=== PATIENT | male | born 1960 | race Two or more races ===

== ENCOUNTER → 2018-08-16 | Outpatient (CLI) | payer BC ==
--- NOTE | 2018-08-16 14:38 | CT ---
EXAMINATION TYPE: CT soft tissue neck w con DATE OF EXAM: 08/16/2018 COMPARISON: None HISTORY: Lt neck mass, history of squamous cell carcinoma removal. CT DLP: 344.7 mGycm CONTRAST: Patient injected with 100 mL of Isovue 300. TECHNIQUE: Axial images at 3 mm thick sections. Reconstructed images in the coronal plane and sagitt al plane are reviewed. FINDINGS: Limited CT sections are obtained the lung apices. The lung apices appear clear. There is a three-vessel arch. CT neck: The torus tubarius and fossa of Rosenmuller are normal. Reproducer spaces are normal. Para nasal sinuses and mastoid air cells are clear. Parotid glands appear normal and symmetrical. Submandibular glands, are normal. Parapharyngeal spac es are normal. There is a 1.7 cm lymph node at the level of the swelling of the left neck compatible with the palpab le abnormality marked by BB. This is inferior to the parotid gland and posterior lateral to the saliv audi submandibular gland The hypopharynx appears within normal limits. Vocal cord level appear symmetrical. Thyroid as visualized is normal. Osseous structures are normal. IMPRESSIONS: 1. Enlarged lymph node at the palpable abnormality within the left neck.
== END | disposition home or self-care (01) ==
LOC: RADCTMAIN 08:58
PROVIDERS: ATTEND Otolaryngology
DX: R59.0 Localized enlarged lymph nodes (principal)
CPT/HCPCS: 70491; Q9967

== ENCOUNTER → 2018-10-13 | Outpatient (CLI) | payer BC ==
--- NOTE | 2018-10-13 14:04 | US ---
EXAMINATION TYPE: US kidneys/renal and bladder DATE OF EXAM: 10/13/2018 COMPARISON: NONE CLINICAL HISTORY: R94.4 Abnormal Kidney Function. EXAM MEASUREMENTS: Right Kidney: 10.2 x 4.6 x 5.5 cm Left Kidney: 9.9 x 4.6 x 4.9 cm Right Kidney: No hydronephrosis or masses seen, lower pole obscured by bowel Left Kidney: No hydronephrosis, lower pole cyst measures 2.7 x 2.6 x 2.7 cm Bladder: wnl Bilateral Jets seen: Yes There is no evidence for hydronephrosis at this point in time. No nephrolithiasis is seen. The urina ry bladder is anechoic. Bilateral ureteral jets are seen. IMPRESSION: 1. No hydronephrosis or nephrolithiasis. 2. Left lower pole simple appearing cyst measuring 2.7 cm. 3. Obscuration of the right lower pole the kidney by overlying bowel gas.
== END ==
LOC: RADUSWWP 13:30
PROVIDERS: ATTEND Internal Medicine
DX: N28.1 Cyst of kidney, acquired (principal)
CPT/HCPCS: 76770

== ENCOUNTER → 2019-04-17 | Outpatient (CLI) | payer BC ==
--- NOTE | 2019-04-17 11:08 | CT ---
EXAMINATION TYPE: CT neck chest without con DATE OF EXAM: 04/17/2019 COMPARISON: None HISTORY: C44.42 Squamous cell carcinoma of skin scalp/neck Unenhanced CT of the chest was performed with lung and mediastinal window settings submitted. The la ck of contrast limits evaluation of the vascular, mediastinal and parenchymal structures including th e upper abdomen. LUNGS: The lungs are clear and free of infiltrate. No atelectasis. No pulmonary nodule or mass is de tected. Right basilar pleural effusion with pleural thickening noted. No CT evidence of interstitial lung disease. MEDIASTINUM/MAYTE: Thoracic aorta is of normal caliber with limited evaluation given lack of contrast . The heart is not enlarged. No evidence for mediastinal mass. No lymph nodes greater than 1cm. UPPER ABDOMEN: No significant abnormality is seen. OTHER: No significant other abnormality. IMPRESSION: 1. No evidence for metastatic disease to the chest. Chronic appearing right basilar pleural thickeni ng and effusion. EXAMINATION TYPE: CT neck chest without con DATE OF EXAM: 04/17/2019 COMPARISON: August 16, 2018 HISTORY: C44.42 Squamous cell carcinoma of skin scalp/neck Unenhanced CT of the neck was performed from the skull base through the lung apices. The lack of cont rast limits evaluation. Previously noted subcutaneous nodule left neck has been removed with multiple surgical clips noted. D istinct residual nodule or mass is identified. There is been removal of the submandibular gland on th e left as well as the parotid gland with small residual islands of carotid tissues suspected. AIRWAY: There is soft tissue fullness in the region of the left piriform sinus. Underlying mass is no t excluded. Direct visualization is recommended. Remaining portions of the airway are felt to be with in normal limits. SALIVARY GLANDS: Right-sided mandibular and parotid glands are within normal limits. THYROID GLAND: No nodules or masses seen. LYMPH NODES: No adenopathy seen greater than 1cm. LUNG APICES: No nodule or mass is seen. OTHER: Vascular structures are patent. No significant degenerative change of the cervical spine. N o abscess seen. IMPRESSION: 1.Previously noted subcutaneous nodule left neck has been removed with multiple surgical clips noted. Distinct residual nodule or mass is identified. 2.There is soft tissue fullness in the region of the left piriform sinus. Underlying mass is not excl uded. Direct visualization is recommended.
== END | disposition home or self-care (01) ==
LOC: RADCTMAIN 08:20
PROVIDERS: ATTEND Radiology Radiation Oncology
DX: C44.42 Squamous cell carcinoma of skin of scalp and neck (principal); C77.0 Secondary and unspecified malignant neoplasm of lymph nodes of head, face and neck; Z96.89 Presence of other specified functional implants; Z92.3 Personal history of irradiation; Z87.891 Personal history of nicotine dependence
CPT/HCPCS: 36415; 70490; 71250; 82565; 84520

== ENCOUNTER → 2019-07-22 | Outpatient (CLI) | payer BC ==
--- NOTE | 2019-07-25 07:35 | PE ---
EXAMINATION TYPE: PET CT fusion skull to thigh DATE OF EXAM: 07/22/2019 COMPARISON: CT neck and chest April 17, [address] HISTORY: History of head and neck cancer diagnosed August 2018 with surgery August 30, 2018 and rad iation treatment completed October. TECHNIQUE: Following the intravenous administration of 11.57 mCi of F-18 FDG, whole body images are performed from the skull base to the midthigh. Images are reviewed on the computer in the coronal, a xial, and sagittal planes. Reconstructed rotating images are created on independent workstation and reviewed on the computer. A noncontrast CT is performed in conjunction with the PET scan. SCAN: Subsequent Scan FINDINGS: SKULL BASE AND NECK: Extensive surgical change to the left neck numerous surgical clips from radical neck dissection surgery are redemonstrated. There is mild adjacent skin thickening presumed posttrea tment/radiation change. No suspicious hypermetabolic uptake is identified at area of prior adenopathy or remainder of the neck. Area of soft tissue fullness left piriform sinus with lack of air near axi al image 56 does not show suspicious hypermetabolic uptake to suggest active neoplasm. CHEST, MEDIASTINUM, AND HILAR REGION: No areas of suspicious hypermetabolic uptake. ABDOMEN AND PELVIS: No areas of suspicious hypermetabolic uptake. OSSEOUS STRUCTURES: No areas of suspicious hypermetabolic uptake. OTHER CT: Cardiomegaly with coronary artery calcification is seen. There is small right pleural effus ion or fluid collection redemonstrated. Prominent splenule in the posterior splenic hilum redemonstrated. Mild calcified plaque of the aorta extends into branch vessels. Enlarged prostate gland consistent with BPH. Adjacent pelvic phleboliths . Some facet arthropathy lower lumbar spine. IMPRESSION: Postsurgical and treatment changes left neck without abnormal hypermetabolic uptake to johnson ggest local or metastatic neoplastic recurrence.
== END | disposition home or self-care (01) ==
LOC: RADPETMAIN 07:30
PROVIDERS: ATTEND Radiology Radiation Oncology
DX: C44.42 Squamous cell carcinoma of skin of scalp and neck (principal); C77.0 Secondary and unspecified malignant neoplasm of lymph nodes of head, face and neck; Z92.3 Personal history of irradiation; Z87.891 Personal history of nicotine dependence; Z98.890 Other specified postprocedural states
CPT/HCPCS: 78815; A9552

== ENCOUNTER → 2019-10-09 | Outpatient (CLI) | payer BC ==
--- NOTE | 2019-10-09 17:43 | US ---
EXAMINATION TYPE: US venous doppler duplex LE LT DATE OF EXAM: 10/09/2019 5:27 PM COMPARISON: NONE CLINICAL HISTORY: M79.662 PAIN LT LOWER LIMB,R22.42 SWELLING LT LOWER LIMB. Edema left leg. SIDE PERFORMED: Left TECHNIQUE: The lower extremity deep venous system is examined utilizing real time linear array sonog rob with graded compression, doppler sonography and color-flow sonography. VESSELS IMAGED: External Iliac Vein (EIV) Common Femoral Vein Deep Femoral Vein Greater Saphenous Vein * Femoral Vein Popliteal Vein Small Saphenous Vein * Proximal Calf Veins (* superficial vessels) Left Leg: Negative for DVT IMPRESSION: No evidence of deep vein thrombosis in the left leg.
== END | disposition home or self-care (01) ==
LOC: RADUSWWP 16:42
PROVIDERS: ATTEND Internal Medicine
DX: M79.662 Pain in left lower leg (principal); R22.42 Localized swelling, mass and lump, left lower limb

== ENCOUNTER → 2020-02-27 | Outpatient (CLI) | payer BC ==
--- NOTE | 2020-02-28 09:23 | CT ---
EXAMINATION TYPE: CT brain wo/w con DATE OF EXAM: 02/27/2020 COMPARISON: 02/27/2020 HISTORY: f/u skin ca to head and neck CT DLP: 2180.8 mGycm Automated exposure control for dose reduction was used. CONTRAST: CT scan of the head is performed without and with IV Contrast, patient injected with 100 mL of Isovue 300. FINDINGS: Mild to moderate generalized degenerative change. Low-attenuation in the white matter is noted. No mi dline shift or mass effect. No acute hemorrhage. Postsurgical change involving the soft tissues of th e neck. Calvarium intact. Hyperdensity near the atrium of the right lateral ventricle and temporal ho rn likely related to calcification choroid plexus. IMPRESSION: 1. Degenerative and nonspecific white matter changes. Hyperdensity on noncontrast images likely repre sents calcification the choroid plexus could be confirmed with MRI.
--- NOTE | 2020-02-28 09:35 | CT ---
EXAMINATION TYPE: CT soft tissue neck wo/w con DATE OF EXAM: 02/27/2020 7:38 PM COMPARISON: PET CT scan 07/22/2019, 08/16/2018 HISTORY: f/u skin ca to head and neck CT DLP: 891.7 mGycm Automated exposure control for dose reduction was used. CONTRAST: CT scan of the neck is performed following without and with IV Contrast, patient injected with 100 mL of Isovue 300. Axial images are obtained, coronal and sagittal reformatted images are reviewed. FINDINGS: SKULL BASE AND NECK: Extensive surgical change to the left neck numerous surgical clips from radical neck dissection surgery are redemonstrated. There is mild adjacent skin thickening presumed posttreat ment/radiation change. No suspicious mass is identified. Area of soft tissue fullness left piriform s inus previously noted stable. Soft tissue density at the level the carotid bifurcation is stable from the PET scan which demonstrated no abnormal hyperbolic uptake and therefore likely postsurgical or b enign. AIRWAY: There is soft tissue fullness in the region of the left piriform sinus. Underlying mass is no t excluded. Direct visualization is recommended. Remaining portions of the airway are felt to be with in normal limits. SALIVARY GLANDS: Right-sided mandibular and parotid glands are within normal limits. Postsurgical ling nges on the left noted. THYROID GLAND: No nodules or masses seen. LYMPH NODES: No adenopathy seen greater than 1cm. LUNG APICES: No nodule or mass is seen. Mild emphysematous changes. OTHER: Vascular structures are patent. No significant degenerative change of the cervical spine. IMPRESSION: 1. Stable postsurgical changes with no evidence of recurrent mass. 2. Stable asymmetric left piriform sinus soft tissue fullness unchanged from prior exam.
== END | disposition home or self-care (01) ==
LOC: RADCTMAIN 18:11
PROVIDERS: ATTEND Radiology Radiation Oncology
DX: R90.82 White matter disease, unspecified (principal); Z98.890 Other specified postprocedural states; C44.42 Squamous cell carcinoma of skin of scalp and neck; C77.0 Secondary and unspecified malignant neoplasm of lymph nodes of head, face and neck; Z92.3 Personal history of irradiation; Z87.891 Personal history of nicotine dependence
CPT/HCPCS: 70492; 70470; Q9967

== ENCOUNTER 2020-06-18 17:34 | Inpatient (IN) | payer BC ==
[2020-06-18 20:44] LABS: Anisocytosis Slight; Basophils % (A) 1 %; Eosinophils # (A) 0.2 k/uL (0-0.7); Eosinophils % (A) 4 %; HCT 20.1 % (39.0-53.0); Hypochromasia Marked; Lymphocytes # (A) 0.8 k/uL (1.0-4.8); Lymphocytes % (A) 17 %; MCH 23.1 pg (25.0-35.0); MCHC 29.4 g/dL (31.0-37.0); MCV 78.5 fL (80.0-100.0); Mean Platelet Volume 7.5; Microcytosis Slight; Monocytes # (A) 0.4 k/uL (0-1.0); Monocytes % (A) 9 %; Neutrophils # (A) 3.3 k/uL (1.3-7.7); Neutrophils % (A) 66 %; Platelet Count 320 k/uL (150-450); Poikilocytosis Slight; RBC 2.56 m/uL (4.30-5.90); RDW 16.2 % (11.5-15.5)
[2020-06-18 20:45] LABS: HGB 5.9 gm/dL (13.0-17.5); Partial Thromboplastin Time 22.9 sec (22.0-30.0); Prothrombin Time 10.1 sec (9.0-12.0)
[2020-06-18 21:01] LABS: Calcium 8.8 mg/dL (8.4-10.2); Potassium 4.3 mmol/L (3.5-5.1); Total Bilirubin 0.3 mg/dL (0.2-1.3); Total Protein 7.2 g/dL (6.3-8.2)
[2020-06-18] MEDS ORDERED: NALOXONE 0.4 MG/ML 1 ML VIAL IV PRN (21:29)
[2020-06-18] MEDS ORDERED: PANTOPRAZOLE 40 MG/10 ML VIAL IVP STA (21:29)
--- NOTE | 2020-06-18 21:31 | ED ---
Recheck HPI - General Chief Complaint: Recheck/Abnormal Lab/Rx Stated Complaint: Abnormal labs Time Seen by Provider: 06/18/20 20:43 Source: patient Mode of arrival: ambulatory Limitations: no limitations - History of Present Illness Initial Comments: 60-year-old male with history of frequent nosebleeds presented emergency department for chief complaint of low hemoglobin. Patient states that he is experiencing dyspnea ON exertion, cold intolerance palpitations with movement and had noted increase in bloody noses. He was found to have low hemoglobin on outpatient labs and sent to the ER for further evaluation. Patient denies any dark stools he denies any bloody stools or history of GI bleed. Patient denies any vomiting or hematemesis. Patient states he has noticed some burning of the rectum when he eats spicy food otherwise no GI symptoms denies any abdominal pain. Patient denies any presyncope or syncopal episodes. Denies anticoagulati on use. Patient appears well and nontoxic on arrival he distress using good spirits however is found to have some mild tachycardia. Blood pressure stable - Related Data Home Medications Medication Instructions Recorded Confirmed Ergocalciferol [Vitamin D2] 50,000 unit PO Q14D 06/18/20 06/18/20 Furosemide [Lasix] 20 mg PO DAILY 06/18/20 06/18/20 Omeprazole Magnesium [PriLOSEC OTC] 20 mg PO BID 06/18/20 06/18/20 Potassium Chloride ER [K-Dur 10] 10 meq PO DAILY 06/18/20 06/18/20 amLODIPine [Norvasc] 5 mg PO DAILY 06/18/20 06/18/20 Allergies Allergy/AdvReac Type Severity Reaction Status Date / Time No Known Allergies Allergy Verified 06/18/20 18:06 Review of Systems ROS Statement: Those systems with pertinent positive or pertinent negative responses have been documented in the HPI. ROS Other: All systems not noted in ROS Statement are negative. Past Medical History Past Medical History: Cancer, GERD/Reflux, Hypertension History of Any Multi-Drug Resistant Organisms: None Reported Past Surgical History: No Surgical Hx Reported Past Psychological History: No Psychological Hx Reported Smoking Status: Former smoker Past Alcohol Use History: Daily Past Drug Use History: Unable to Obtain General Exam - General Exam Comments Initial Comments: General: The patient is awake and alert, in no distress, some pallor noted Eye: +3 mm pupils are equal, round and reactive to light, extra-ocular movements are intact. No nystagmus. There is normal conjunctiva bilaterally. No signs of icterus. Ears, nose, mouth and throat: There are moist mucous membranes and no oral lesions. Neck: The neck is supple, there is no tenderness or JVD. Cardiovascular: There is a increased rate and regular rhythm. No murmur, rub or gallop is appreciated. Respiratory: Lungs are clear to auscultation, respirations are non-labored, breath sounds are equal. No wheezes, stridor, rales, or rhonchi. Gastrointestinal: Soft, non-distended, non-tender abdomen without masses or organomegaly noted. There is no rebound or guarding present Brown stool on occult test. Musculoskeletal: Normal ROM, no tenderness. Strength 5/5. Sensation intact. radial pulses equal bilaterally 2+. Neurological: A&O x 3. CN II-XII intact grossly, There are no obvious motor or sensory deficits. Coordination appears grossly intact. Speech is normal. Skin: Skin is warm and dry and no rashes or lesions are noted. Psychiatric: Cooperative, appropriate mood & affect, normal judgment. Limitations: no limitations Course Vital Signs 06/18/20 06/18/20 06/18/20 18:02 20:55 21:40 Temperature 98.9 F Pulse Rate 108 H 100 Respiratory 24 18 18 Rate Blood Pressure 178/68 O2 Sat by Pulse 98 Oximetry 06/18/20 06/18/20 06/18/20 21:43 22:16 22:26 Temperature 98.4 F 98.2 F Pulse Rate 93 84 91 Respiratory 20 18 18 Rate Blood Pressure 155/80 167/83 153/84 O2 Sat by Pulse 100 100 99 Oximetry Medical Decision Making - Medical Decision Making initial hgb 5.7, 5.8 currentl brown stool on occult, however found to be postiive. hx epistaxis. none currently. Patient will be transfused as he is symptomatic with repeat CBC. Protonix given. GI consulted. Yessenia NEGRETE accepted patient for [facility]. Patient is agreeable to admission. Dr Springer agreeable to care plan. - Lab Data Result diagrams: 06/18/20 20:29 06/18/20 20:29 Lab Results 06/18/20 06/18/20 06/18/20 Range/Units 20:29 20:29 20:29 WBC 5.0 (3.8-10.6) k/uL RBC 2.56 L (4.30-5.90) m/uL Hgb 5.9 L* (13.0-17.5) gm/dL Hct 20.1 L (39.0-53.0) % MCV 78.5 L (80.0-100.0) fL MCH 23.1 L (25.0-35.0) pg MCHC 29.4 L (31.0-37.0) g/dL RDW 16.2 H (11.5-15.5) % Plt Count 320 (150-450) k/uL MPV 7.5 Neutrophils % 66 % Lymphocytes % 17 % Monocytes % 9 % Eosinophils % 4 % Basophils % 1 % Neutrophils # 3.3 (1.3-7.7) k/uL Lymphocytes # 0.8 L (1.0-4.8) k/uL Monocytes # 0.4 (0-1.0) k/uL Eosinophils # 0.2 (0-0.7) k/uL Basophils # 0.0 (0-0.2) k/uL Hypochromasia Marked Poikilocytosis Slight Anisocytosis Slight Microcytosis Slight PT 10.1 (9.0-12.0) sec INR 1.0 (<1.2) APTT 22.9 (22.0-30.0) sec Sodium 140 (137-145) mmol/L Potassium 4.3 (3.5-5.1) mmol/L Chloride 109 H (98-107) mmol/L Carbon Dioxide 21 L (22-30) mmol/L Anion Gap 10 mmol/L BUN 41 H (9-20) mg/dL Creatinine 2.60 H (0.66-1.25) mg/dL Est GFR (CKD-EPI)AfAm 30 (>60 ml/min/1.73 sqM) Est GFR (CKD-EPI)NonAf 26 (>60 ml/min/1.73 sqM) Glucose 103 H (74-99) mg/dL Calcium 8.8 (8.4-10.2) mg/dL Total Bilirubin 0.3 (0.2-1.3) mg/dL AST 29 (17-59) U/L ALT 16 (4-49) U/L Alkaline Phosphatase 114 (38-126) U/L Troponin I (0.000-0.034) ng/mL Total Protein 7.2 (6.3-8.2) g/dL Albumin 4.0 (3.5-5.0) g/dL Stool Occult Blood (Negative) Blood Type Blood Type Confirm Blood Type Recheck Bld Type Recheck Status Antibody Screen Crossmatch Spec Expiration Date 06/18/20 06/18/20 06/18/20 Range/Units 20:29 20:55 21:04 WBC (3.8-10.6) k/uL RBC (4.30-5.90) m/uL Hgb (13.0-17.5) gm/dL Hct (39.0-53.0) % MCV (80.0-100.0) fL MCH (25.0-35.0) pg MCHC (31.0-37.0) g/dL RDW (11.5-15.5) % Plt Count (150-450) k/uL MPV Neutrophils % % Lymphocytes % % Monocytes % % Eosinophils % % Basophils % % Neutrophils # (1.3-7.7) k/uL Lymphocytes # (1.0-4.8) k/uL Monocytes # (0-1.0) k/uL Eosinophils # (0-0.7) k/uL Basophils # (0-0.2) k/uL Hypochromasia Poikilocytosis Anisocytosis Microcytosis PT (9.0-12.0) sec INR (<1.2) APTT (22.0-30.0) sec Sodium (137-145) mmol/L Potassium (3.5-5.1) mmol/L Chloride (98-107) mmol/L Carbon Dioxide (22-30) mmol/L Anion Gap mmol/L BUN (9-20) mg/dL Creatinine (0.66-1.25) mg/dL Est GFR (CKD-EPI)AfAm (>60 ml/min/1.73 sqM) Est GFR (CKD-EPI)NonAf (>60 ml/min/1.73 sqM) Glucose (74-99) mg/dL Calcium (8.4-10.2) mg/dL Total Bilirubin (0.2-1.3) mg/dL AST (17-59) U/L ALT (4-49) U/L Alkaline Phosphatase (38-126) U/L Troponin I 0.013 (0.000-0.034) ng/mL Total Protein (6.3-8.2) g/dL Albumin (3.5-5.0) g/dL Stool Occult Blood (Negative) Blood Type AB Negative Blood Type Confirm AB Negative Blood Type Recheck No Previous Record Bld Type Recheck Status CABO Indicated Antibody Screen NEGATIVE Crossmatch See Detail Spec Expiration Date 06/21/2020 - 235406/18/20 Range/Units 21:21 WBC (3.8-10.6) k/uL RBC (4.30-5.90) m/uL Hgb (13.0-17.5) gm/dL Hct (39.0-53.0) % MCV (80.0-100.0) fL MCH (25.0-35.0) pg MCHC (31.0-37.0) g/dL RDW (11.5-15.5) % Plt Count (150-450) k/uL MPV Neutrophils % % Lymphocytes % % Monocytes % % Eosinophils % % Basophils % % Neutrophils # (1.3-7.7) k/uL Lymphocytes # (1.0-4.8) k/uL Monocytes # (0-1.0) k/uL Eosinophils # (0-0.7) k/uL Basophils # (0-0.2) k/uL Hypochromasia Poikilocytosis Anisocytosis Microcytosis PT (9.0-12.0) sec INR (<1.2) APTT (22.0-30.0) sec Sodium (137-145) mmol/L Potassium (3.5-5.1) mmol/L Chloride (98-107) mmol/L Carbon Dioxide (22-30) mmol/L Anion Gap mmol/L BUN (9-20) mg/dL Creatinine (0.66-1.25) mg/dL Est GFR (CKD-EPI)AfAm (>60 ml/min/1.73 sqM) Est GFR (CKD-EPI)NonAf (>60 ml/min/1.73 sqM) Glucose (74-99) mg/dL Calcium (8.4-10.2) mg/dL Total Bilirubin (0.2-1.3) mg/dL AST (17-59) U/L ALT (4-49) U/L Alkaline Phosphatase (38-126) U/L Troponin I (0.000-0.034) ng/mL Total Protein (6.3-8.2) g/dL Albumin (3.5-5.0) g/dL Stool Occult Blood Positive (Negative) Blood Type Blood Type Confirm Blood Type Recheck Bld Type Recheck Status Antibody Screen Crossmatch Spec Expiration Date Disposition Clinical Impression: Anemia, Cold intolerance, Tachycardia, Hx of epistaxis Disposition: ADMITTED IP TO THIS [facility] Condition: Stable Is patient prescribed a controlled substance at d/c from ED?: No Time of Disposition: 21:31 Decision to Admit Reason: Admit from EC Decision Date: 06/18/20 Decision Time: 21:31
--- NOTE | 2020-06-18 21:37 | XR ---
EXAMINATION TYPE: XR chest 2V DATE OF EXAM: 06/18/2020 COMPARISON: NONE HISTORY: Short of breath TECHNIQUE: FINDINGS: There is some blunting of the right costophrenic angle. Heart is top normal in size. There is no pulmonary consolidation. There are no hilar masses. Mediastinum is normal. There is no gross he art failure. IMPRESSION: There is mild right pleural effusion. Pleural fluid also present on the old PET CT scan o f 07/22/2019. No obvious heart failure.
[2020-06-18] MEDS: SODIUM CHLORIDE 0.9% 1,000 ML IV SCH (22:19)
[2020-06-19] MEDS: SODIUM CHLORIDE 0.9% 1,000 ML IV SCH (06:34)
[2020-06-19 08:24] LABS: Anisocytosis Slight; Basophils % (A) 1 %; Eosinophils # (A) 0.2 k/uL (0-0.7); Eosinophils % (A) 6 %; HCT 20.8 % (39.0-53.0); Hypochromasia Marked; Lymphocytes # (A) 0.5 k/uL (1.0-4.8); Lymphocytes % (A) 13 %; MCH 24.9 pg (25.0-35.0); MCHC 30.8 g/dL (31.0-37.0); MCV 80.8 fL (80.0-100.0); Mean Platelet Volume 8.7; Monocytes # (A) 0.3 k/uL (0-1.0); Monocytes % (A) 9 %; Neutrophils # (A) 2.6 k/uL (1.3-7.7); Neutrophils % (A) 68 %; Platelet Count 267 k/uL (150-450); Poikilocytosis Moderate; RBC 2.58 m/uL (4.30-5.90); RDW 16.5 % (11.5-15.5); WBC 3.8 k/uL (3.8-10.6)
[2020-06-19 08:37] LABS: HGB 6.4 gm/dL (13.0-17.5)
[2020-06-19] MEDS ORDERED: FUROSEMIDE 20 MG TAB PO SCH (09:00)
[2020-06-19] MEDS ORDERED: POTASSIUM CHLORIDE ER 10 MEQ TAB.ER.PRT PO SCH (09:00)
[2020-06-19] MEDS ORDERED: PANTOPRAZOLE 40 MG TABLET PO SCH (09:00)
[2020-06-19] MEDS ORDERED: amLODIPine 5 MG TAB PO SCH (09:00)
[2020-06-19 15:04] VITALS: RESP 18
--- NOTE | 2020-06-19 15:06 | P.HPIM ---
History of Present Illness Extremities all present male with the history and family history of nosebleeds came in with compensative nosebleeds which resolved today patient started having nosebleeds yesterday patient last nosebleed was yesterday. Patient had 1 episode of dark stools patient didn't have any dark stools of multiple sclerosis since yesterday. Patient denied any fever chills. Patient denied any hematemesis or hematochezia. Patient is found to have hemoglobin of around 5.9 and received 2 units of blood transfusion and will transfuse him with 1 more unit of PRBC. Patient does have chronic kidney disease followed. It nephrology patient Baseline creatinine is around 2 and his creatinine is 2.6 here patient is also on Lasix because of his chronic kidney disease. She appears to have a stage 3-4 chronic kidney disease. Review of Systems REVIEW OF SYSTEMS: CONSTITUTIONAL: No fever, no malaise, no fatigue. HEENT: No recent visual problems or hearing problems. Denied any sore throat. CARDIOVASCULAR: No chest pain, orthopnea, PND, no palpitations, no syncope. PULMONARY: No shortness of breath, no cough, no hemoptysis. GASTROINTESTINAL: No diarrhea, no nausea, no vomiting, no abdominal pain. NEUROLOGICAL: No headaches, no weakness, no numbness. HEMATOLOGICAL: Denies any bleeding or petechiae. GENITOURINARY: Denies any burning micturition, frequency, or urgency. MUSCULOSKELETAL/RHEUMATOLOGICAL: Denies any joint pain, swelling, or any muscle pain. ENDOCRINE: Denies any polyuria or polydipsia. The rest of the 14-point review of systems is negative. Past Medical History Past Medical History: Cancer, GERD/Reflux, Hypertension Additional Past Medical History / Comment(s): Skin CA History of Any Multi-Drug Resistant Organisms: None Reported Past Surgical History: No Surgical Hx Reported Past Anesthesia/Blood Transfusion Reactions: No Reported Reaction Past Psychological History: No Psychological Hx Reported Smoking Status: Former smoker Past Alcohol Use History: Daily Past Drug Use History: Unable to Obtain Medications and Allergies Home Medications Medication Instructions Recorded Confirmed Type Ergocalciferol [Vitamin D2] 50,000 unit PO Q14D 06/18/20 06/18/20 History Furosemide [Lasix] 20 mg PO DAILY 06/18/20 06/18/20 History Omeprazole Magnesium [PriLOSEC OTC] 20 mg PO BID 06/18/20 06/18/20 History Potassium Chloride ER [K-Dur 10] 10 meq PO DAILY 06/18/20 06/18/20 History amLODIPine [Norvasc] 5 mg PO DAILY 06/18/20 06/18/20 History Allergies Allergy/AdvReac Type Severity Reaction Status Date / Time No Known Allergies Allergy Verified 06/18/20 18:06 Physical Exam Vitals: Vital Signs Temp Pulse Pulse Resp BP BP Pulse Ox 06/19/20 13:25 98 F 78 16 152/86 99 06/19/20 12:00 97.6 F 76 18 152/82 100 06/19/20 11:43 97.8 F 86 18 157/92 06/19/20 11:16 98.7 F 89 18 143/83 99 06/19/20 11:06 97.3 F L 83 18 145/69 100 06/19/20 08:30 81 18 150/84 100 06/19/20 04:00 97.7 F 80 18 157/88 99 06/19/20 02:00 80 16 149/72 100 06/19/20 01:00 82 16 156/81 97 06/19/20 00:11 97.7 F 71 16 163/97 100 06/19/20 00:00 88 16 156/92 98 06/18/20 22:56 98.3 F 86 18 154/83 99 06/18/20 22:26 98.2 F 91 18 153/84 99 06/18/20 22:16 98.4 F 84 18 167/83 100 06/18/20 21:43 93 20 155/80 100 06/18/20 21:40 100 18 06/18/20 20:55 18 06/18/20 18:02 98.9 F 108 H 24 178/68 98 Intake and Output 06/19/20 06/19/20 06/19/20 06:59 14:59 22:59 Intake Total 610 310 Balance 610 310 Intake: Intake, IV Titration 300 Amount Sodium Chloride 0.9% 1, 300 000 ml @ 100 mls/hr IV . Q10H [facility] Rx#:[id number] Blood Product 310 310 Rc As-1 Unit 310 [id number] Rc As-1 Unit 310 [id number] Other: Voiding Method Toilet # Voids 1 Weight 97.069 kg PHYSICAL EXAMINATION: GENERAL: The patient is alert and oriented x3, not in any acute distress. Well developed, well nourished. HEENT: Pupils are round and equally reacting to light. EOMI. No scleral icterus. Does have conjunctival pallor. Normocephalic, atraumatic. No pharyngeal erythema. No thyromegaly. CARDIOVASCULAR: S1 and S2 present. No murmurs, rubs, or gallops. PULMONARY: Chest is clear to auscultation, no wheezing or crackles. ABDOMEN: Soft, nontender, nondistended, normoactive bowel sounds. No palpable organomegaly. MUSCULOSKELETAL: No joint swelling or deformity. EXTREMITIES: No cyanosis, clubbing, or pedal edema. NEUROLOGICAL: Gross neurological examination did not reveal any focal deficits. SKIN: No rashes. Results CBC & Chem 7: 06/19/20 08:06 06/18/20 20:29 Labs: Abnormal Lab Results - Last 24 Hours (Table) 06/18/20 06/18/20 06/18/20 Range/Units 20:29 20:29 20:55 RBC 2.56 L (4.30-5.90) m/uL Hgb 5.9 L* (13.0-17.5) gm/dL Hct 20.1 L (39.0-53.0) % MCV 78.5 L (80.0-100.0) fL MCH 23.1 L (25.0-35.0) pg MCHC 29.4 L (31.0-37.0) g/dL RDW 16.2 H (11.5-15.5) % Lymphocytes # 0.8 L (1.0-4.8) k/uL Chloride 109 H (98-107) mmol/L Carbon Dioxide 21 L (22-30) mmol/L BUN 41 H (9-20) mg/dL Creatinine 2.60 H (0.66-1.25) mg/dL Glucose 103 H (74-99) mg/dL Crossmatch See Detail 06/19/20 Range/Units 08:06 RBC 2.58 L (4.30-5.90) m/uL Hgb 6.4 L* (13.0-17.5) gm/dL Hct 20.8 L (39.0-53.0) % MCV (80.0-100.0) fL MCH 24.9 L (25.0-35.0) pg MCHC 30.8 L (31.0-37.0) g/dL RDW 16.5 H (11.5-15.5) % Lymphocytes # 0.5 L (1.0-4.8) k/uL Chloride (98-107) mmol/L Carbon Dioxide (22-30) mmol/L BUN (9-20) mg/dL Creatinine (0.66-1.25) mg/dL Glucose (74-99) mg/dL Crossmatch Thrombosis Risk Factor Assmnt - Choose All That Apply Any of the Below Risk Factors Present?: No Other Risk Factors: Yes Each Risk Factor Represents 2 Points: Age 61-74 years Other congenital or acquired thrombophilia - If yes, enter type in comment: No Thrombosis Risk Factor Assessment Total Risk Factor Score: 2 Thrombosis Risk Factor Assessment Level: Low Risk Assessment and Plan Plan: -Acute on chronic blood loss anemia secondary to frequent epistaxis. Patient's epistaxis resolved at this time patient is not on any blood thinners or antiplatelet medications patient will receive 1 more unit of blood transfusion completing 3 units of PRBC transfusion further workup for anemia and iron deficiency need to be done as an outpatient. Patient follows up with nephrology where iron studies will be done. After the transfusion patient probably can be discharged as there is no clinical evidence of GI bleed and he is epistaxis resolved patient will follow up with ENT as an outpatient. Gastroenterology was consulted from ER who already evaluated the patient after the clearance patient will be discharged. -Chronic kidney disease of stage 3-4 probably secondary to hypertensive nephrosclerosis -Mild acute renal failure probably prerenal azotemia from blood loss anemia -Hypertension -Gastroesophageal reflux disease -Possibility of an deficiency anemia from of frequent nosebleeds
--- NOTE | 2020-06-19 15:07 | P.DS ---
Providers Date of admission: 06/18/20 21:33 Attending physician: Terrence Marquez Consults: 06/18/20 21:29 Consult Physician Routine Consulting Provider: Yevgeniy Wayne Consult Reason/Comments: Low HgB, consult per [facility] Do you want consulting provider notified?: Yes 06/19/20 11:52 Consult Physician Routine Consulting Provider: Ezra Handley Consult Reason/Comments: epistaxis, anemia Do you want consulting provider notified?: Yes Primary care physician: Higinio Killian [place] [facility] Course: As mentioned in HPI Patient Condition at Discharge: Stable Plan - Discharge Summary Discharge Rx Participant: No New Discharge Prescriptions: No Action amLODIPine [Norvasc] 5 mg PO DAILY Potassium Chloride ER [K-Dur 10] 10 meq PO DAILY Furosemide [Lasix] 20 mg PO DAILY Ergocalciferol [Vitamin D2] 50,000 unit PO Q14D Omeprazole Magnesium [PriLOSEC OTC] 20 mg PO BID Discharge Medication List Ergocalciferol [Vitamin D2] 50,000 unit PO Q14D 06/18/20 [History] Furosemide [Lasix] 20 mg PO DAILY 06/18/20 [History] Omeprazole Magnesium [PriLOSEC OTC] 20 mg PO BID 06/18/20 [History] Potassium Chloride ER [K-Dur 10] 10 meq PO DAILY 06/18/20 [History] amLODIPine [Norvasc] 5 mg PO DAILY 06/18/20 [History] Follow up Appointment(s)/Referral(s): Nicki Gavin MD [STAFF PHYSICIAN] - 1 Week Constantin Sylvester MD [Primary Care Provider] - 3 Days Ezra Handley DO [Doctor of Osteopathic Medicine] - 1 Week Yevgeniy Wayne MD [STAFF PHYSICIAN] - 1 Week Discharge Disposition: HOME SELF-CARE
[2020-06-19 17:34] VITALS: BP 152/82; TEMP 98.3
[2020-06-19 17:41] VITALS: PULSE 80
--- NOTE | 2020-06-20 12:53 | P.CONS ---
History of Present Illness - Reason for Consult Consult date: 06/19/20 Anemia Requesting physician: Kristen Irving - Chief Complaint Anemia - History of Present Illness 60-year-old male with multiple medical comorbidities including osteoarthritis, history of skin CA, GERD and hypertension who presented to the hospital due to anemia. The patient has a history of frequent epistaxis and has been seen by the ENT service in the past. He reports that nosebleeds will occur one to 2 times per day. Nosebleeds can last up to 10 minutes. He denies any change in frequency of bowel habits or signs or symptoms of GI bleeding. The patient was found to be anemic in outpatient setting and sent to the hospital for further evaluation where he was found to have a hemoglobin of 6.4. Stool testing was positive for occult blood, WBC 3.8, platelet count 267,000 with total bilirubin 0.3, alkaline phosphatase 114, AST 29 and ALT 16. The patient does take ibuprofen nightly as well as Pepcid therapy. He has not had endoscopy with either EGD or colonoscopy in the past. Review of Systems REVIEW OF SYSTEMS: CONSTITUTIONAL: Denies any fevers, chills, weight change or fatigue. CARDIOVASCULAR: Denies any chest pain, palpitations high or low blood pressures RESPIRATORY: Denies any shortness of breath, hemoptysis or cough. GENITOURINARY: No dysuria or hematuria. MUSCULOSKELETAL: No weakness reported. SKIN: Denies any new rashes or lesions, jaundice or pallor. PSYCHIATRIC: Denies any depression or anxiety. NEUROLOGY: Denies headache, denies any new focal deficits. EARS/NOSE/THROAT: No recent hearing change, congestion, nasal discharge or sore throat, but he does report frequent epistaxis. EYES: No pain in eyes, discharge or change in vision. GASTROINTESTINAL: As per HPI. Past Medical History Past Medical History: Cancer, GERD/Reflux, Hypertension Additional Past Medical History / Comment(s): Skin CA History of Any Multi-Drug Resistant Organisms: None Reported Past Surgical History: No Surgical Hx Reported Past Anesthesia/Blood Transfusion Reactions: No Reported Reaction Past Psychological History: No Psychological Hx Reported Smoking Status: Former smoker Past Alcohol Use History: Daily Past Drug Use History: Unable to Obtain Additional History: Family history: Reviewed with the patient and no ncontributory to current medical presentation Medications and Allergies Home Medications Medication Instructions Recorded Confirmed Type Ergocalciferol [Vitamin D2] 50,000 unit PO Q14D 06/18/20 06/18/20 History Furosemide [Lasix] 20 mg PO DAILY 06/18/20 06/18/20 History Omeprazole Magnesium [PriLOSEC OTC] 20 mg PO BID 06/18/20 06/18/20 History Potassium Chloride ER [K-Dur 10] 10 meq PO DAILY 06/18/20 06/18/20 History amLODIPine [Norvasc] 5 mg PO DAILY 06/18/20 06/18/20 History Allergies Allergy/AdvReac Type Severity Reaction Status Date / Time No Known Allergies Allergy Verified 06/18/20 18:06 Physical Exam Vitals: Vital Signs Temp Pulse Pulse Resp BP BP Pulse Ox 06/19/20 13:25 98 F 78 16 152/86 99 06/19/20 12:00 97.6 F 76 18 152/82 100 06/19/20 11:43 97.8 F 86 18 157/92 06/19/20 11:16 98.7 F 89 18 143/83 99 06/19/20 11:06 97.3 F L 83 18 145/69 100 06/19/20 08:30 81 18 150/84 100 06/19/20 04:00 97.7 F 80 18 157/88 99 06/19/20 02:00 80 16 149/72 100 06/19/20 01:00 82 16 156/81 97 06/19/20 00:11 97.7 F 71 16 163/97 100 06/19/20 00:00 88 16 156/92 98 06/18/20 22:56 98.3 F 86 18 154/83 99 06/18/20 22:26 98.2 F 91 18 153/84 99 06/18/20 22:16 98.4 F 84 18 167/83 100 06/18/20 21:43 93 20 155/80 100 06/18/20 21:40 100 18 06/18/20 20:55 18 06/18/20 18:02 98.9 F 108 H 24 178/68 98 Intake and Output 06/18/20 06/19/20 06/19/20 22:59 06:59 14:59 Intake Total 0 610 310 Balance 0 610 310 Intake: Intake, IV Titration 300 Amount Sodium Chloride 0.9% 1, 300 000 ml @ 100 mls/hr IV . Q10H [facility] Rx#:[id number] Blood Product 0 310 310 Rc As-1 Unit 310 [id number] Rc As-1 Unit 0 310 [id number] Other: Voiding Method Toilet # Voids 1 Weight 97.069 kg 97.069 kg On physical examination, patient appears comfortable in no apparent distress. HEAD: Normocephalic, atraumatic. EYES: No scleral icterus. No conjunctival injection. MOUTH: No lesions, tongue midline. NECK: Trachea midline, no gross abnormalities. CHEST: Clear to auscultation with no wheezing or rhonchi appreciated. HEART: Regular rate and rhythm. ABDOMEN: Soft, obese. Bowel sounds are positive. No organomegaly. No guarding or rigidity. EXTREMITIES: No pedal edema. SKIN: No rashes, no jaundice. NEUROLOGIC: Alert and oriented x3. No focal deficits. Results CBC & Chem 7: 06/19/20 08:06 06/18/20 20:29 Labs: Abnormal Lab Results - Last 24 Hours (Table) 06/18/20 06/18/20 06/18/20 Range/Units 20:29 20:29 20:55 RBC 2.56 L (4.30-5.90) m/uL Hgb 5.9 L* (13.0-17.5) gm/dL Hct 20.1 L (39.0-53.0) % MCV 78.5 L (80.0-100.0) fL MCH 23.1 L (25.0-35.0) pg MCHC 29.4 L (31.0-37.0) g/dL RDW 16.2 H (11.5-15.5) % Lymphocytes # 0.8 L (1.0-4.8) k/uL Chloride 109 H (98-107) mmol/L Carbon Dioxide 21 L (22-30) mmol/L BUN 41 H (9-20) mg/dL Creatinine 2.60 H (0.66-1.25) mg/dL Glucose 103 H (74-99) mg/dL Crossmatch See Detail 06/19/20 Range/Units 08:06 RBC 2.58 L (4.30-5.90) m/uL Hgb 6.4 L* (13.0-17.5) gm/dL Hct 20.8 L (39.0-53.0) % MCV (80.0-100.0) fL MCH 24.9 L (25.0-35.0) pg MCHC 30.8 L (31.0-37.0) g/dL RDW 16.5 H (11.5-15.5) % Lymphocytes # 0.5 L (1.0-4.8) k/uL Chloride (98-107) mmol/L Carbon Dioxide (22-30) mmol/L BUN (9-20) mg/dL Creatinine (0.66-1.25) mg/dL Glucose (74-99) mg/dL Crossmatch Assessment and Plan (1) Anemia Narrative/Plan: 60-year-old male presenting to the hospital for complaints of anemia. Found to have a microcytic hypochromic anemia in the outpatient setting. The patient does report frequent epistaxis in the outpatient setting usually daily 1-2 times per day. Denies any signs or symptoms of GI bleeding. No prior history of endoscopy. Stool testing was positive for occult blood. Suspicion is for anemia related to his epistaxis, however cannot rule out a component of GI blood loss, although the patient denies any change in bowel habits or signs or symptoms of GI bleeding. Status: Acute Code(s): D64.9 - ANEMIA, UNSPECIFIED SNOMED Code(s): 605594800 (2) Hx of epistaxis Status: Acute Code(s): Z87.898 - PERSONAL HISTORY OF OTHER SPECIFIED CONDITIONS SNOMED Code(s): 806785103 Plan: Supportive care Okay for diet Continue monitor hemoglobin and hematocrit and transfuse as needed Extensive discussion with the patient and his who is bedside, recommendation is for patient to follow up after discharge for EGD and colonoscopy to rule out causes of GI blood loss Patient should also follow up with ENT given frequent recurrent epistaxis Thank you for allowing us to participate in the care of the patient
[2020-06-24] MEDS ORDERED: ERGOCALCIFEROL 50,000 UNIT CAP PO SCH (09:00)
== END 2020-06-19 16:29 | disposition home or self-care (01) | DRG 812 ==
LOC: EC 17:34 → 3SCARD 21:33
PROVIDERS: ADMIT Hospitalist; ATTEND Hospitalist
PROC: 30233N1 Transfusion of Nonautologous Red Blood Cells into Peripheral Vein, Percutaneous Approach (ICD-10-PCS; principal; 2020-06-19)
DX: D62 Acute posthemorrhagic anemia (principal); N18.4 Chronic kidney disease, stage 4 (severe); N17.9 Acute kidney failure, unspecified; R04.0 Epistaxis; K21.9 Gastro-esophageal reflux disease without esophagitis; I12.9 Hypertensive chronic kidney disease with stage 1 through stage 4 chronic kidney disease, or unspecified chronic kidney disease; D50.9 Iron deficiency anemia, unspecified; Z79.899 Other long term (current) drug therapy; Z87.891 Personal history of nicotine dependence
CPT/HCPCS: 36415; 36430; 71046; 80053; 82272; 84484; 85025; 85610; 85730; 86850; 86900; 86901; 86920; 93005; 96361; 96374; 99285

== ENCOUNTER → 2020-06-18 | Outpatient (CLI) | payer BC ==
[2020-06-18 15:41] LABS: Appearance,Urine Clear (Clear); Bilirubin,Urine Negative (Negative); Blood,Urine Small (Negative); Color,Urine Colorless; Glucose,Urine (UA) Negative (Negative); Ketones,Urine Negative (Negative); Leukocyte Esterase,Urine Negative (Negative); Nitrite,Urine Negative (Negative); Protein,Urine 2+ (Negative); RBC,Urine 1 /hpf (0-5); Specific Gravity,Urine 1.008 (1.001-1.035); Squamous Epithelial Cell,Urine <1 /hpf (0-4); Urobilinogen,Urine <2.0 mg/dL (<2.0); WBC,Urine <1 /hpf (0-5)
[2020-06-18 16:14] LABS: Anisocytosis Slight; Basophils % (A) 1 %; Eosinophils # (A) 0.2 k/uL (0-0.7); Eosinophils % (A) 4 %; Hypochromasia Marked; Lymphocytes # (A) 0.6 k/uL (1.0-4.8); Lymphocytes % (A) 16 %; MCH 23.2 pg (25.0-35.0); MCHC 29.1 g/dL (31.0-37.0); MCV 79.8 fL (80.0-100.0); Monocytes # (A) 0.4 k/uL (0-1.0); Monocytes % (A) 10 %; Neutrophils # (A) 2.7 k/uL (1.3-7.7); Neutrophils % (A) 68 %; Platelet Count 308 k/uL (150-450); Poikilocytosis Slight; RBC 2.45 m/uL (4.30-5.90); RDW 16.3 % (11.5-15.5)
[2020-06-18 16:21] LABS: HCT 19.5 % (39.0-53.0); HGB 5.7 gm/dL (13.0-17.5)
[2020-06-18 18:44] LABS: African American GFR (CKD) 29.5 (60.0-200.0); Albumin/Globulin Ratio 1.6 (1.60-3.17); Anion Gap 8.8 mmol/L (4.00-12.00); BUN/Creat Ratio 16.92 Ratio (12.00-20.00); Calcium 8.7 mg/dL (8.7-10.3); Carbon Dioxide 23.2 mmol/L (21.6-31.8); Globulin 2.5 g/dL (1.6-3.3); Non-African American GFR(CKD) 25.5 (60.0-200.0); Potassium 4.6 mmol/L (3.5-5.5); Total Bilirubin 0.2 mg/dL (0.2-1.2); Total Protein 6.5 g/dL (6.2-8.2)
[2020-06-18 22:24] LABS: INR 1.03 (0.90-1.11); Partial Thromboplastin Time 24.1 sec (23.5-31.0); Prothrombin Time 11.1 sec (9.9-11.9)
== END | disposition home or self-care (01) ==
LOC: LABWHC1 14:30
PROVIDERS: ATTEND Internal Medicine
DX: Z01.812 Encounter for preprocedural laboratory examination (principal)
CPT/HCPCS: 36415; 80053; 81001; 85025; 85610; 85730

== ENCOUNTER 2020-07-02 07:38 | Day surgery (SDC) | payer BC ==
[2020-06-27 17:52] VITALS: BMI 30.7
[~2020-07-02 07:38] MED LIST: LACTATED RINGERS 1,000 ML IV SCH; LIDOCAINE 1% (10MG/ML) FOR IV START INTRADERMA PRN
[2020-07-02 08:00] VITALS: TEMP 97.5
[2020-07-02] MEDS ORDERED: PROPOFOL 10 MG/ML 20 ML VIAL IV ONE (08:39)
[2020-07-02] MEDS ORDERED: LIDOCAINE 1% INJ 10MG/ML (20 ML MDV) ONE (08:39)
--- NOTE | 2020-07-02 09:28 | P.PCN ---
Date of Procedure: 07/02/20 Description of Procedure: Brief history: Patient is a 60-year-old male presenting for EGD and colonoscopy for evaluation of anemia and other fecal abnormalities. Patient was seen in the emergency department where he had reported frequent epistaxis which is improved. No prior EGD or colonoscopy. Patient had anemia and positive stool testing for occult blood. Procedure performed: Esophagogastroduodenoscopy With biopsy Colonoscopy with polypectomy Estimated blood loss: Minimal. Preoperative diagnosis: Anemia, other fecal abnormalities, no prior colonoscopy. Anesthesia: MAC Procedure: After informed consent was obtained from the patient was brought into the endoscopy unit and IV sedation was administered by anesthesia under continuous monitoring. Initially upper endoscopy was done. The Olympus GF 190 video endoscope was inserted into the mouth and esophagus intubated without any difficulty and was gradually advanced into the stomach and duodenum and carefully examined. The bulb and second part of the duodenum appeared normal, With biopsies taken. The scope was then withdrawn into the stomach adequately insufflated with air and upon careful examination the antrum and body, cardia and fundus appeared normal, Except for some mild scattered erythema in the antrum and body suggestive of mild gastritis with biopsies taken. The scope was then withdrawn into the esophagus. The GE junction was located at 42 cm to the incisors And biopsy. It appeared regular with no erythema erosions or ulcerations. Rest of the esophagus appeared normal. Patient tolerated the procedure well. At this time the patient continued to remain sedation. Initial digital rectal examination was normal. Olympus CF 190 video colonoscope was then inserted into the rectum and gradually advanced to the cecum without any difficulty. Careful examination was performed as the scope was gradually being withdrawn. The prep was excellent. The cecum, ascending colon, transverse colon, descending colon, sigmoid colon and rectum appeared normal. Diminutive polyps measuring 1-2 mm in size removed with cold forcep polypectomy from the ascending colon and hepatic flexure. 4 transverse colon polyps measuring 4 mm in size to 6 mm in size removed with hot snare polypectomy. 4 descending colon polyps measuring from millimeters in size to 5 mm in size removed with hot snare polypectomy. Sigmoid colon polyp measuring 5 mm in size removed with hot snare polypectomy. Pedunc ulated 14 mm rectal polyp removed with hot snare polypectomy. Retroflexion was performed in the rectum and no lesions were noted. Patient tolerated the procedure well. Impression: 1. Mild gastritis. Biopsies of the duodenum, antrum body and GE junction. 2. Pedunculated rectal polyp removed with hot snare polypectomy. 9 flat polyps removed with hot snare polypectomy 4 from the transverse colon, 4 from the descending colon and one from the sigmoid colon. 2 diminutive polyps removed with cold forcep polypectomy from the ascending colon and hepatic flexure. Recommendations: Findings of this examination were discussed with the patient as well as his . Okay to resume diet. Okay to resume medications. Await pathology from polypectomies. Recommend repeat colonoscopy in 1 year for high-risk colon polyps.
[2020-07-02 09:37] VITALS: RESP 16
[2020-07-02 09:52] VITALS: BP 144/79; PULSE 81
== END 2020-07-02 10:33 | disposition home or self-care (01) ==
LOC: ORWHC2ENDO 07:38
PROVIDERS: ATTEND Internal Medicine
DX: D12.2 Benign neoplasm of ascending colon (principal); D12.3 Benign neoplasm of transverse colon; D12.4 Benign neoplasm of descending colon; D12.5 Benign neoplasm of sigmoid colon; D12.8 Benign neoplasm of rectum; K29.50 Unspecified chronic gastritis without bleeding; K21.00 Gastro-esophageal reflux disease with esophagitis, without bleeding; D64.9 Anemia, unspecified; Z87.891 Personal history of nicotine dependence; Z98.890 Other specified postprocedural states
CPT/HCPCS: 88305; 45380; 45385; 43239; J2001; J2704

== ENCOUNTER → 2020-07-10 | Outpatient (CLI) | payer BC ==
[2020-07-10 16:52] LABS: Anisocytosis Slight; HCT 25.8 % (39.0-53.0); HGB 8.3 gm/dL (13.0-17.5); Hypochromasia Moderate; MCH 25.6 pg (25.0-35.0); MCHC 32.2 g/dL (31.0-37.0); MCV 79.6 fL (80.0-100.0); Mean Platelet Volume 8.5; Microcytosis Slight; Platelet Count 230 k/uL (150-450); RBC 3.25 m/uL (4.30-5.90); RDW 17.5 % (11.5-15.5); WBC 4.8 k/uL (3.8-10.6)
[2020-07-10 17:16] LABS: Appearance,Urine Clear (Clear); Bilirubin,Urine Negative (Negative); Blood,Urine Small (Negative); Color,Urine Light Yellow; Glucose,Urine (UA) Negative (Negative); Ketones,Urine Negative (Negative); Leukocyte Esterase,Urine Negative (Negative); Mucus,Urine Rare /hpf; Nitrite,Urine Negative (Negative); Protein,Urine 2+ (Negative); RBC,Urine 2 /hpf (0-5); Specific Gravity,Urine 1.009 (1.001-1.035); Urobilinogen,Urine <2.0 mg/dL (<2.0); WBC,Urine 1 /hpf (0-5)
[2020-07-10 17:23] LABS: Creatinine,Urine Random 49.6 mg/dL; Protein/Creatinine Ratio,Urine 3.629
[2020-07-11 01:40] LABS: % Iron Saturation 6.58 (15.00-50.00); African American GFR (CKD) 24.8 (60.0-200.0); Albumin 4.2 g/dL (3.80-4.90); Albumin/Globulin Ratio 1.68 (1.60-3.17); Anion Gap 11.3 mmol/L (4.00-12.00); BUN/Creat Ratio 17.67 Ratio (12.00-20.00); Calcium 8.7 mg/dL (8.7-10.3); Carbon Dioxide 20.7 mmol/L (21.6-31.8); Ferritin 12.6 ng/mL (22.0-322.0); Globulin 2.5 g/dL (1.6-3.3); Magnesium 2.2 mg/dL (1.5-2.4); Non-African American GFR(CKD) 21.4 (60.0-200.0); Phosphorus 5.5 mg/dL (2.4-5.1); Potassium 4.5 mmol/L (3.5-5.5); Total Bilirubin 0.2 mg/dL (0.2-1.2); Total Protein 6.7 g/dL (6.2-8.2); Uric Acid 10.2 mg/dL (3.7-8.7)
[2020-07-11 10:33] LABS: Hepatitis A Antibody IgM Non-Reactive (Non-Reactive); Hepatitis B Core IgM Non-Reactive (Non-Reactive); Hepatitis B Surface Antigen Non-Reactive (Non-Reactive); Hepatitis C IgG Antibody Non-Reactive (Non-Reactive)
[2020-07-11 10:58] LABS: DNA Double-Stranded NEGATIVE (NEGATIVE)
== END | disposition home or self-care (01) ==
LOC: LABWHC1 16:18
PROVIDERS: ATTEND Internal Medicine
DX: N18.30 Chronic kidney disease, stage 3 unspecified (principal); R79.9 Abnormal finding of blood chemistry, unspecified
CPT/HCPCS: 36415; 80053; 80074; 81001; 82306; 82570; 82728; 83516; 83540; 83550; 83735; 83883; 83970; 84100; 84156; 84550; 85027; 86038; 86160; 86162; 86225; 86255; 86334

== ENCOUNTER → 2022-02-16 | Outpatient (CLI) | payer BC ==
--- NOTE | 2022-02-16 11:42 | US ---
EXAMINATION TYPE: US kidneys/renal and bladder DATE OF EXAM: 02/16/2022 COMPARISON: US kidneys October 13, 2018. PET/CT July 22, 2019 CLINICAL HISTORY: N18.4 CKD. CKD. EXAM MEASUREMENTS: Right Kidney: 9.6 x 5.2 x 4.5 cm Left Kidney: 10.6 x 5.6 x 4.4 cm Right Kidney: Thin-walled cyst with septation seen lower pole: 2.0 x 1.5 x 1.2 cm. Anechoic area see n superiorly: 1.1 x 1.3 x 1.5 cm. Thin-walled cyst with septation seen superiorly: 1.8 x 1.9 x 1.2 cm . Left Kidney: Lobulated anechoic area seen medially at the inferior pole: 2.6 x 1.5 x 2.2 cm. Hypoechoic area seen at kidney border: 1.7 x 3.1 x 0.6 cm. Bladder: Appears adequately distended. Bilateral Jets seen: Yes Some increased cortical echogenicity bilaterally. IMPRESSION: Bosniak type I and type II lesions bilaterally. Evidence of chronic medical renal disease . No hydronephrosis seen bilaterally.
== END | disposition home or self-care (01) ==
LOC: RADUSWWP 10:38
PROVIDERS: ATTEND Internal Medicine Nephrology
DX: N18.4 Chronic kidney disease, stage 4 (severe) (principal)
CPT/HCPCS: 76770

== ENCOUNTER 2022-02-18 09:38 | Day surgery (SDC) | payer BC ==
[2022-02-16 09:41] VITALS: BMI 29.2
[~2022-02-18 09:38] MED LIST changes: -LIDOCAINE 1% (10MG/ML) FOR IV START INTRADERMA PRN
[2022-02-18] MEDS ORDERED: SODIUM CHLORIDE 0.9% 1,000 ML IV ONE ×2 (10:30)
[2022-02-18] MEDS ORDERED: PROPOFOL 10 MG/ML 20 ML VIAL IV ONE (11:06)
--- NOTE | 2022-02-18 11:40 | P.PCN ---
Date of Procedure: 02/18/22 Procedure(s) Performed: BRIEF HISTORY: Patient is a 61-year-old pleasant white male scheduled for an elective colonoscopy as a part of evaluation of Hemoccult-positive stool. Patient has history of osler lawson rendu disease and prior history of telangiectasia in the colon. He denies any rectal bleeding. He also has prior history of colon polyps. PROCEDURE PERFORMED: Colonoscopy with with argon plasma coagulation and biopsy. PREOPERATIVE DIAGNOSIS: History of colon polyps and Hemoccult-positive stool. IV sedation per Anesthesia. PROCEDURE: After informed consent was obtained, the patient, was brought into the endoscopy unit. IV sedation was administered by Anesthesia under continuous monitoring. Digital rectal examination was normal. Initially the Olympus CF-160 flexible video colonoscope was then inserted in the rectum, gradually advanced into the cecum without any difficulty. Careful examination was performed as the scope was gradually being withdrawn. Ileocecal valve and the appendiceal orifice were visualized and appeared normal. Prep was excellent. Mucosa of the cecum, had a 5 mm nonbleeding angiectasia with was cauterized using argon plasma coagulation. Mucosa of the ascending colon, transverse colon, appeared normal. In the transverse colon there was a 5 mm polyp removed by cold biopsy. In the sigmoid: There was a 3 minute a polyp removed by cold biopsy. Rest of the descending colon, sigmoid colon, and rectum appeared normal. Retroflexion was performed in the rectum and no lesions were seen. The patient tolerated the procedure well. IMPRESSION: 5 mm nonbleeding angiectasia in the cecum status post argon plasma coagulation 5 mm transverse colon polyp status post cold biopsy 3 mm sigmoid polyp status post cold biopsy RECOMMENDATIONS: Findings of this examination were discussed with the patient as well as his family. He was advised to follow with the biopsy results. If the biopsy reveals adenoma he can have a repeat colonoscopy in 5 years.
[2022-02-18 11:49] VITALS: RESP 16
[2022-02-18 12:26] VITALS: BP 135/74; PULSE 65
== END 2022-02-18 12:39 | disposition home or self-care (01) ==
LOC: ORWHC2ENDO 09:38
PROVIDERS: ATTEND Internal Medicine Gastroenterology
DX: D12.5 Benign neoplasm of sigmoid colon (principal); D12.3 Benign neoplasm of transverse colon; K31.819 Angiodysplasia of stomach and duodenum without bleeding; Z86.010 Personal history of colon polyps; K21.9 Gastro-esophageal reflux disease without esophagitis; D64.9 Anemia, unspecified; N28.9 Disorder of kidney and ureter, unspecified; I10 Essential (primary) hypertension; Z79.899 Other long term (current) drug therapy; Z87.891 Personal history of nicotine dependence; Z80.9 Family history of malignant neoplasm, unspecified
CPT/HCPCS: 88305; 45380; 45388; J2704

== ENCOUNTER 2022-08-13 09:21 | Observation (INO) | payer BC ==
--- NOTE | 2022-08-13 09:46 | ED ---
Recheck HPI - General Chief Complaint: Recheck/Abnormal Lab/Rx Stated Complaint: Abn Labs Time Seen by Provider: 08/13/22 09:42 Source: patient, RN notes reviewed Mode of arrival: ambulatory Limitations: no limitations - History of Present Illness Initial Comments: Patient is a 62-year-old male presenting to the emergency room from [facility] after his Procrit injection for his chronic anemia secondary to renal failure with and his CBC today revealed a hemoglobin of 7.0 which was down from July 30 at 9.2. He does report some shortness of breath with exertion recently but denies any other associated symptoms including any chest pain, weakness, fatigue, nausea, vomiting, headache, or dizziness. He denies any significant bleeding event recently with the exception of a brief episode of nose bleeding earlier this morning. He does report that he has tarry-like stools however he is on an iron supplement and this is not uncommon for him. He denies any abdominal pain. In addition to his chronic kidney disease he has a past med ical history significant for skin cancer, GERD, hypertension and a rare blood disorder. He did have a an event similar to this in June 2020. - Related Data Home Medications Medication Instructions Recorded Confirmed calcitrioL [Rocaltrol] 0.5 mcg PO SUTH 08/05/20 08/13/22 amLODIPine [Norvasc] 10 mg PO DAILY 02/14/21 08/13/22 Famotidine 40 mg PO DAILY 02/16/22 08/13/22 Febuxostat 40 mg PO DAILY 02/16/22 08/13/22 Ferrous Sulfate [Feosol] 325 mg PO BID 02/16/22 08/13/22 Sodium Bicarbonate Tab 650 mg PO DAILY 06/17/22 08/13/22 hydrALAZINE HCL 50 mg PO TID 06/17/22 08/13/22 Calcium Acetate [Phoslo] 1,334 mg PO BID@1200,1700 08/13/22 08/13/22 Ergocalciferol (Vitamin D2) 1,250 mcg PO SALES 08/13/22 08/13/22 [Drisdol (50,000 Iu)] Allergies Allergy/AdvReac Type Severity Reaction Status Date / Time No Known Allergies Allergy Verified 08/13/22 13:02 Review of Systems ROS Statement: Those systems with pertinent positive or pertinent negative responses have been documented in the HPI. ROS Other: All systems not noted in ROS Statement are negative. Past Medical History Past Medical History: Blood Disorder, Cancer, GERD/Reflux, Hypertension, Renal Disease Additional Past Medical History / Comment(s): Skin CA - SURGERY AND RADIATION. [id number] (Blood disorder). Kidney disease-about to start dialysis History of Any Multi-Drug Resistant Organisms: None Reported Past Surgical History: No Surgical Hx Reported Additional Past Surgical History / Comment(s): removal of skin cancer removed from left buddhist. fistula placed for dialysis Past Anesthesia/Blood Transfusion Reactions: No Reported Reaction Additional Past Anesthesia/Blood Transfusion Reaction / Comment(s): recent transfusions with no problems Past Psychological History: No Psychological Hx Reported Smoking Status: Former smoker Past Alcohol Use History: Daily Past Drug Use History: None Reported - Past Family History Father Family Medical History: Cancer General Exam - General Exam Comments Initial Comments: GENERAL: No acute distress, well developed, well nourished. HEENT: Normocephalic, atraumatic. Pupils equal, round, reactive to light. Moist mucous membranes. LUNGS: No respiratory distress. Clear to auscultation, no adventitious sounds, no use of accessory muscles. HEART: Regular rate and rhythm without murmur, rub, or gallop. ABDOMEN: Normal bowel sounds. Soft, non-tender, non-distended. Rounded. Digital rectal exam revealed good rectal tone without bloody stools. Dark Brown near black stools noted no melena or maroon color. No hemorrhoids. BACK: Normal inspection. EXTREMITIES: Bilateral lower extremity edema +1. No tenderness. Moves all extremities. NEUROLOGIC: Alert & oriented x 3. CN II-XII grossly intact. PSYCHIATRIC: Normal affect and behavior. DERMATOLOGIC: Skin intact, without rashes or lesions noted. Limitations: no limitations Course Vital Signs 08/13/22 08/13/22 08/13/22 09:25 11:32 14:20 Temperature 98 F 97.9 F Pulse Rate 97 76 83 Respiratory 18 18 18 Rate Blood Pressure 162/65 158/72 148/90 O2 Sat by Pulse 98 98 98 Oximetry Medical Decision Making - Medical Decision Making Was pt. sent in by a medical professional or institution? @ -Infusion center Did you speak to anyone other than the patient for history? @ -No Did you review nursing and triage notes? @ -Yes and agree except patient does note tarry stools. Were old charts reviewed? @ -Previous EKG and previous history and physical Differential Diagnosis? @ -MDM differential diagnosis anemia: Acute loss, GI bleed, iron deficiency, worsening of chronic secondary anemia,this is not meant to be an all-inclusive list. EKG interpreted by me (3pts min.)? @ -EKG interpreted by me demonstrates sinus rhythm with sinus arrhythmia, ventricular rate 76 bpm, CT interval 172 ms, QRS duration 99 ms, QT/QTC 391/421 ms, PRT axes 69, 5, 43 X-rays interpreted by me (1pt min.)? @ -None CT interpreted by me (1pt min.)? @ -None U/S interpreted by me (1pt. min.)? @ -None What testing was considered but not performed? (CT, X-rays, U/S, labs)? Why? @ -None What meds were considered but not given? Why? @ -None Did you discuss the management of the patient with other professionals? @ -Spoke with Dr. YURI Sheet regarding admission Did you reconcile home meds? @ -No Was smoking cessation discussed for >3mins.? @ -No, nonsmoker Was critical care preformed (if so, how long)? @ -None Were there social determinants of health that impacted care today? How? (Homelessness, low income, unemployed, alcoholism, drug addiction, transportation, low edu. Level, literacy, decrease access to med. care, custodial, rehab)? @ -No Was there de-escalation of care discussed even if they declined? (Discuss DNR or withdrawal of care, Hospice)? @ -No What co-morbidities impacted this encounter? (DM, HTN, Smoking, COPD, CAD, Cancer, CVA, Hep., AIDS, mental health diagnosis, sleep apnea, morbid obesity)? @ -Chronic renal disease Was patient admitted / discharged? @ -Patient sent to emergency room from [facility] for hemoglobin of 7.0. Patient with some symptomatology of shortness of breath with exertion denies any evidence of bleeding reports some tarry stools occasionally but on oral iron supplements. Digital rectal exam completed with stool for occult blood obtained no obvious signs of bleeding on digital rectal exam. Will repeat CBC check CMP, troponin, ferritin TIBC and type and cross for potential transfusion. No indication for diagnostic imaging. EKG completed and as indicated above. Repeat CBC reveals hemoglobin of 6.9. Symptomatic anemia with a hemoglobin less than 7 will require packed RBC transfusion. CMP consistent with end-stage renal disease baseline GFR 14 currently at 11 today without uremic symptoms. Troponin elevated at 0.040 likely secondary to renal impairment however given severe anemia will need trending of troponin. Stool for occult blood negative. Will plan for observation admission and transfusion of 1 unit of packed red blood cells along with turning of of troponin as indicated above. No indication for further diagnostic imaging or laboratory studies at this time. Iron studies pending will defer iron infusion at this time. Spoke with Dr. su from [facility] regarding patient presentation, findings and recommendation of observation admission for transfusion and monitoring. He is excepting of admission. Will place admission orders. He is requesting consult to both nephrology and hematology will place with consult as well. Will admit patient in stable condition for symptomatic anemia to observation. Undiagnosed new problem with uncertain prognosis? @ -None Drug Therapy requiring intensive monitoring for toxicity (Heparin, Nitro, Insulin, Cardizem)? @ -None Were any procedures done? @ -None Diagnosis/symptom? @ -Anemia Acute, or Chronic, or Acute on Chronic? @ -Acute on chronic Uncomplicated (without systemic symptoms) or Complicated (systemic symptoms)? @ -Complicated Side effects of treatment? @ -None Exacerbation, Progression, or Severe Exacerbation] @ -No Poses a threat to life or bodily function? @ -Yes Diagnosis/symptom? @ -End-stage renal disease Acute, or Chronic, or Acute on Chronic? @ -Chronic Uncomplicated (without systemic symptoms) or Complicated (systemic symptoms)? @ -Complicated Side effects of treatment? @ -None Exacerbation, Progression, or Severe Exacerbation] @ -Concern for progression Poses a threat to life or bodily function? @ -No Case discussed with Dr. Trammell. - Lab Data Result diagrams: 08/13/22 11:27 08/13/22 11:27 Lab Results 08/13/22 08/13/22 08/13/22 Range/Units 10:11 11:20 11:27 WBC 4.7 5.5 (3.8-10.6) k/uL RBC 2.11 L 2.16 L (4.30-5.90) m/uL Hgb 6.9 L* 6.9 L* (13.0-17.5) gm/dL Hct 20.6 L 20.9 L (39.0-53.0) % MCV 97.2 96.7 (80.0-100.0) fL MCH 32.7 32.0 (25.0-35.0) pg MCHC 33.7 33.1 (31.0-37.0) g/dL RDW 14.5 15.0 (11.5-15.5) % Plt Count 229 248 (150-450) k/uL MPV 9.0 9.2 Neutrophils % 76 73 % Lymphocytes % 11 12 % Monocytes % 5 7 % Eosinophils % 4 4 % Basophils % 0 1 % Neutrophils # 3.6 4.1 (1.3-7.7) k/uL Lymphocytes # 0.5 L 0.7 L (1.0-4.8) k/uL Monocytes # 0.2 0.4 (0-1.0) k/uL Eosinophils # 0.2 0.2 (0-0.7) k/uL Basophils # 0.0 0.1 (0-0.2) k/uL Hypochromasia Slight Slight PT (9.0-12.0) sec INR (<1.2) APTT (22.0-30.0) sec Sodium (137-145) mmol/L Potassium (3.5-5.1) mmol/L Chloride (98-107) mmol/L Carbon Dioxide (22-30) mmol/L Anion Gap mmol/L BUN (9-20) mg/dL Creatinine (0.66-1.25) mg/dL Est GFR (CKD-EPI)AfAm (>60 ml/min/1.73 sqM) Est GFR (CKD-EPI)NonAf (>60 ml/min/1.73 sqM) Glucose (74-99) mg/dL Calcium (8.4-10.2) mg/dL Total Bilirubin (0.2-1.3) mg/dL AST (17-59) U/L ALT (4-49) U/L Alkaline Phosphatase (38-126) U/L Troponin I (0.000-0.034) ng/mL Total Protein (6.3-8.2) g/dL Albumin (3.5-5.0) g/dL Stool Occult Blood (Negative) Blood Type AB Negative Blood Type Recheck AB Neg Bld Type Recheck Status No Antibody Screen NEGATIVE Crossmatch See Detail Spec Expiration Date 08/16/2022 - 231908/13/22 08/13/22 08/13/22 Range/Units 11:27 11:27 11:27 WBC (3.8-10.6) k/uL RBC (4.30-5.90) m/uL Hgb (13.0-17.5) gm/dL Hct (39.0-53.0) % MCV (80.0-100.0) fL MCH (25.0-35.0) pg MCHC (31.0-37.0) g/dL RDW (11.5-15.5) % Plt Count (150-450) k/uL MPV Neutrophils % % Lymphocytes % % Monocytes % % Eosinophils % % Basophils % % Neutrophils # (1.3-7.7) k/uL Lymphocytes # (1.0-4.8) k/uL Monocytes # (0-1.0) k/uL Eosinophils # (0-0.7) k/uL Basophils # (0-0.2) k/uL Hypochromasia PT 9.8 (9.0-12.0) sec INR 0.9 (<1.2) APTT 22.2 (22.0-30.0) sec Sodium 141 (137-145) mmol/L Potassium 4.7 (3.5-5.1) mmol/L Chloride 110 H (98-107) mmol/L Carbon Dioxide 21 L (22-30) mmol/L Anion Gap 10 mmol/L BUN 63 H (9-20) mg/dL Creatinine 5.02 H (0.66-1.25) mg/dL Est GFR (CKD-EPI)AfAm 13 (>60 ml/min/1.73 sqM) Est GFR (CKD-EPI)NonAf 11 (>60 ml/min/1.73 sqM) Glucose 114 H (74-99) mg/dL Calcium 9.0 (8.4-10.2) mg/dL Total Bilirubin 0.2 (0.2-1.3) mg/dL AST 30 (17-59) U/L ALT 24 (4-49) U/L Alkaline Phosphatase 101 (38-126) U/L Troponin I 0.040 H* (0.000-0.034) ng/mL Total Protein 6.4 (6.3-8.2) g/dL Albumin 3.8 (3.5-5.0) g/dL Stool Occult Blood (Negative) Blood Type Blood Type Recheck Bld Type Recheck Status Antibody Screen Crossmatch Spec Expiration Date 08/13/22 Range/Units 12:16 WBC (3.8-10.6) k/uL RBC (4.30-5.90) m/uL Hgb (13.0-17.5) gm/dL Hct (39.0-53.0) % MCV (80.0-100.0) fL MCH (25.0-35.0) pg MCHC (31.0-37.0) g/dL RDW (11.5-15.5) % Plt Count (150-450) k/uL MPV Neutrophils % % Lymphocytes % % Monocytes % % Eosinophils % % Basophils % % Neutrophils # (1.3-7.7) k/uL Lymphocytes # (1.0-4.8) k/uL Monocytes # (0-1.0) k/uL Eosinophils # (0-0.7) k/uL Basophils # (0-0.2) k/uL Hypochromasia PT (9.0-12.0) sec INR (<1.2) APTT (22.0-30.0) sec Sodium (137-145) mmol/L Potassium (3.5-5.1) mmol/L Chloride (98-107) mmol/L Carbon Dioxide (22-30) mmol/L Anion Gap mmol/L BUN (9-20) mg/dL Creatinine (0.66-1.25) mg/dL Est GFR (CKD-EPI)AfAm (>60 ml/min/1.73 sqM) Est GFR (CKD-EPI)NonAf (>60 ml/min/1.73 sqM) Glucose (74-99) mg/dL Calcium (8.4-10.2) mg/dL Total Bilirubin (0.2-1.3) mg/dL AST (17-59) U/L ALT (4-49) U/L Alkaline Phosphatase (38-126) U/L Troponin I (0.000-0.034) ng/mL Total Protein (6.3-8.2) g/dL Albumin (3.5-5.0) g/dL Stool Occult Blood Negative (Negative) Blood Type Blood Type Recheck Bld Type Recheck Status Antibody Screen Crossmatch Spec Expiration Date Disposition Clinical Impression: Symptomatic anemia, Elevated troponin Disposition: HOME SELF-CARE Condition: Stable Is patient prescribed a controlled substance at d/c from ED?: No Referrals: Constantin Sylvester MD [Primary Care Provider] - 1-2 days Time of Disposition: 13:40
[2022-08-13 10:29] LABS: Basophils % (A) 0 %; Eosinophils # (A) 0.2 k/uL (0-0.7); Eosinophils % (A) 4 %; HCT 20.6 % (39.0-53.0); Hypochromasia Slight; Lymphocytes # (A) 0.5 k/uL (1.0-4.8); Lymphocytes % (A) 11 %; MCH 32.7 pg (25.0-35.0); MCHC 33.7 g/dL (31.0-37.0); MCV 97.2 fL (80.0-100.0); Monocytes # (A) 0.2 k/uL (0-1.0); Monocytes % (A) 5 %; Neutrophils # (A) 3.6 k/uL (1.3-7.7); Neutrophils % (A) 76 %; Platelet Count 229 k/uL (150-450); RBC 2.11 m/uL (4.30-5.90); RDW 14.5 % (11.5-15.5); WBC 4.7 k/uL (3.8-10.6)
[2022-08-13 10:48] LABS: HGB 6.9 gm/dL (13.0-17.5)
[2022-08-13 11:55] LABS: Basophils # (A) 0.1 k/uL (0-0.2); Basophils % (A) 1 %; Eosinophils # (A) 0.2 k/uL (0-0.7); Eosinophils % (A) 4 %; HCT 20.9 % (39.0-53.0); Hypochromasia Slight; Lymphocytes # (A) 0.7 k/uL (1.0-4.8); Lymphocytes % (A) 12 %; MCHC 33.1 g/dL (31.0-37.0); MCV 96.7 fL (80.0-100.0); Mean Platelet Volume 9.2; Monocytes # (A) 0.4 k/uL (0-1.0); Monocytes % (A) 7 %; Neutrophils # (A) 4.1 k/uL (1.3-7.7); Neutrophils % (A) 73 %; Platelet Count 248 k/uL (150-450); RBC 2.16 m/uL (4.30-5.90); WBC 5.5 k/uL (3.8-10.6)
[2022-08-13 12:07] LABS: HGB 6.9 gm/dL (13.0-17.5)
[2022-08-13 12:15] LABS: Albumin 3.8 g/dL (3.5-5.0); Potassium 4.7 mmol/L (3.5-5.1); Total Bilirubin 0.2 mg/dL (0.2-1.3); Total Protein 6.4 g/dL (6.3-8.2)
[2022-08-13 12:56] LABS: INR 0.9 (<1.2); Partial Thromboplastin Time 22.2 sec (22.0-30.0); Prothrombin Time 9.8 sec (9.0-12.0)
[2022-08-13 17:32] LABS: Basophils # (A) 0.1 k/uL (0-0.2); Basophils % (A) 1 %; Eosinophils # (A) 0.3 k/uL (0-0.7); Eosinophils % (A) 5 %; HCT 24.4 % (39.0-53.0); HGB 8.1 gm/dL (13.0-17.5); Hypochromasia Moderate; Lymphocytes # (A) 0.7 k/uL (1.0-4.8); Lymphocytes % (A) 16 %; MCH 32.7 pg (25.0-35.0); MCHC 33.3 g/dL (31.0-37.0); MCV 98.2 fL (80.0-100.0); Macrocytosis Slight; Mean Platelet Volume 7.9; Monocytes # (A) 0.3 k/uL (0-1.0); Monocytes % (A) 6 %; Neutrophils # (A) 3.3 k/uL (1.3-7.7); Neutrophils % (A) 70 %; Platelet Count 236 k/uL (150-450); RBC 2.49 m/uL (4.30-5.90); RDW 15.1 % (11.5-15.5); WBC 4.7 k/uL (3.8-10.6)
[2022-08-13] MEDS: CALCIUM ACETATE 667 MG TAB PO SCH (18:13)
[2022-08-13] MEDS: hydrALAZINE HCL 50 MG TAB PO SCH (20:02)
[2022-08-13] MEDS: FERROUS SULFATE 325 MG TAB PO SCH (20:02)
[2022-08-13 20:19] LABS: % Iron Saturation 10.5 (15.00-50.00)
--- NOTE | 2022-08-13 23:50 | HP ---
HISTORY AND PHYSICAL CHIEF COMPLAINT: Symptomatic anemia and abnormal labs. HISTORY OF PRESENT ILLNESS: This 62-year-old gentleman with a past medical history of multiple medical problems including hypertension, chronic kidney disease, also had an AV graft placed on the left arm. The patient is followed by Nephrology. The patient had iron transfusion. Today, his hemoglobin is 6.9. The patient was directed to [facility]. The patient complains of tiredness and weakness. No chest pain. No palpitations. No fever. PAST MEDICAL HISTORY: Reviewed and include chronic kidney disease, hypertension. The rest of the history and rest of the chart is reviewed. HOME MEDICATIONS: Reviewed and include vitamin D2. Dose and rest of medication noted. ALLERGIES: None. FAMILY HISTORY: History of cancer in the family. SOCIAL HISTORY: Previous history of smoking and daily alcohol intake. REVIEW OF SYSTEMS: A 14-point review of systems negative except as mentioned earlier. PHYSICAL EXAMINATION: VITAL SIGNS: Pulse 83, blood pressure 149/81, respirations 18. HEENT: Conjunctivae pale. CHEST: Clear to auscultation. CARDIOVASCULAR: S1, S2. ABDOMEN: Soft. NERVOUS SYSTEM: Nonfocal. SKIN: No ulcers or rashes. JOINTS: No active deforming arthropathy. LABORATORY DATA: WBC 6.9. ASSESSMENT: 1. Symptomatic anemia for transfusion. 2. Chronic kidney disease. 3. History of gastroesophageal reflux disease. 4. Hypertension. 5. History of skin cancer. 6. Multiple medical issues. RECOMMENDATIONS: In this 62-year-old gentleman, who presented with multiple complex medical issues, I would recommend 1 unit transfusion and monitor hemodynamic status and fluid status closely. Resume the home medications. Nephrology consultation. Repeat labs in the morning. Prognosis is guarded. Further recommendations to follow. See orders for details. Set of troponins also has been requested. MMODL / IJN: [id number] /
[2022-08-14 02:34] VITALS: RESP 16
[2022-08-14] MEDS: FERROUS SULFATE 325 MG TAB PO SCH (07:31)
[2022-08-14] MEDS: hydrALAZINE HCL 50 MG TAB PO SCH (07:31)
[2022-08-14] MEDS ORDERED: FAMOTIDINE 20 MG TAB PO SCH ×2 (09:00)
[2022-08-14] MEDS ORDERED: amLODIPine 10 MG TAB PO SCH (09:00)
[2022-08-14] MEDS ORDERED: allopurinoL 100 MG TAB PO SCH (09:00)
[2022-08-14] MEDS ORDERED: SODIUM BICARBONATE TAB 650 MG TAB PO SCH (09:00)
[2022-08-14 09:14] LABS: Basophils # (A) 0.03 X 10*3/uL (0.00-0.10); Basophils % (A) 0.5 %; Eosinophils # (A) 0.35 X 10*3/uL (0.04-0.35); Eosinophils % (A) 5.7 %; HCT 25.2 % (39.6-50.0); HGB 7.6 g/dL (13.0-17.0); Immature Grans, Automated 0.6 %; Lymphocytes # (A) 0.76 X 10*3/uL (0.90-5.00); Lymphocytes % (A) 12.3 %; MCH 31.3 pg (27.0-32.0); MCHC 30.2 g/dL (32.0-37.0); MCV 103.7 fL (80.0-97.0); Mean Platelet Volume 10.1 fL (9.5-12.2); Monocytes # (A) 0.62 X 10*3/uL (0.20-1.00); Monocytes % (A) 10.1 %; NRBC Per 100 WBC 0 /100 WBCS (0.0-0.0); Neutrophils # (A) 4.36 X 10*3/uL (1.80-7.70); Neutrophils % (A) 70.8 %; Platelet Count 258 X 10*3/uL (140-440); RBC 2.43 X 10*6/uL (4.40-5.60); RDW 15.7 % (11.5-14.5); WBC 6.16 X 10*3/uL (4.50-10.00)
[2022-08-14 09:28] LABS: African American GFR (CKD) 12.9 (60.0-200.0); Anion Gap 12.1 mmol/L (10.00-18.00); BUN/Creat Ratio 11.16 Ratio (12.00-20.00); Blood Urea Nitrogen 56.9 mg/dL (9.0-27.0); Calcium 9.1 mg/dL (8.7-10.3); Carbon Dioxide 22.9 mmol/L (20.0-27.5); Non-African American GFR(CKD) 11.1 (60.0-200.0); Potassium 4.4 mmol/L (3.5-5.5)
--- NOTE | 2022-08-14 10:19 | P.NPCON ---
History of Present Illness - Reason for Consult chronic renal failure - History of Present Illness Patient is a 62-year-old male with history of hypertension, chronic kidney disease NKF stage 4-5 with previous creatinine at 4.3 mg/dL in July 2022. Patient is admitted to the hospital as he was noted to have a significantly low hemoglobin while he was scheduled to have and Aranesp. Hemoglobin was 6.9 g/dL. There has not been any episodes of acute bleeding. Patient has been receiving the Aranesp every 2 weeks. Previous hemoglobin 9.3 on 07/30/2022. Serum creatinine was 5.1 mg/dL with previous creatinine at 3.0 on 07/10/2020 Patient denies any nausea or vomiting. No complaints of dizziness chest pains or shortness of breath. He has a functioning AV fistula in his left arm. Patient has not started hemodialysis yet. Review of Systems As per HPI Past Medical History Past Medical History: Blood Disorder, Cancer, GERD/Reflux, Hypertension, Renal Disease Additional Past Medical History / Comment(s): Skin CA - SURGERY AND RADIATION. [id number] (Blood disorder). Kidney disease-about to start dialysis History of Any Multi-Drug Resistant Organisms: None Reported Past Surgical History: No Surgical Hx Reported Additional Past Surgical History / Comment(s): removal of skin cancer removed from left church. fistula placed for dialysis left upper arm Past Anesthesia/Blood Transfusion Reactions: No Reported Reaction Additional Past Anesthesia/Blood Transfusion Reaction / Comment(s): recent transfusions with no problems Past Psychological History: No Psychological Hx Reported Smoking Status: Former smoker Past Alcohol Use History: Daily Additional Past Alcohol Use History / Comment(s): quit smoking 2 yrs ago, smoked for 45 yrs. past hx of daily alcohol use-no longer drinks alcohol Past Drug Use History: None Reported - Past Family History Father Family Medical History: Cancer Medications and Allergies Home Medications Medication Instructions Recorded Confirmed Type calcitrioL [Rocaltrol] 0.5 mcg PO SUTH 08/05/20 08/13/22 History amLODIPine [Norvasc] 10 mg PO DAILY 02/14/21 08/13/22 History Famotidine 40 mg PO DAILY 02/16/22 08/13/22 History Febuxostat 40 mg PO DAILY 02/16/22 08/13/22 History Ferrous Sulfate [Feosol] 325 mg PO BID 02/16/22 08/13/22 History Sodium Bicarbonate Tab 650 mg PO DAILY 06/17/22 08/13/22 History hydrALAZINE HCL 50 mg PO TID 06/17/22 08/13/22 History Calcium Acetate [Phoslo] 1,334 mg PO BID@1200,1700 08/13/22 08/13/22 History Ergocalciferol (Vitamin D2) 1,250 mcg PO SALES 08/13/22 08/13/22 History [Drisdol (50,000 Iu)] Allergies Allergy/AdvReac Type Severity Reaction Status Date / Time No Known Allergies Allergy Verified 08/13/22 13:02 Physical Exam Vitals: Vital Signs Temp Pulse Pulse Resp BP BP Pulse Ox 08/14/22 07:17 98.3 F 86 16 179/74 97 08/14/22 02:33 98.0 F 93 16 141/64 96 08/13/22 19:04 98.3 F 94 17 138/71 98 08/13/22 18:15 98.1 F 82 21 150/68 99 08/13/22 16:59 98.0 F 79 18 148/89 08/13/22 14:50 98.0 F 80 18 140/88 97 08/13/22 14:30 98.0 F 83 18 149/81 100 08/13/22 14:20 97.9 F 83 18 148/90 98 08/13/22 11:32 76 18 158/72 98 Intake and Output 08/13/22 08/14/22 08/14/22 22:59 06:59 14:59 Intake Total 310 Balance 310 Intake: Blood Product 310 Rc As-1 Unit 310 [id number] Other: # Voids 4 Weight 95.254 kg Patient is awake, comfortable, no acute distress Examination of the heart S1 and S2 Examination of the lungs bilateral breath sounds are heard Abdomen is soft nontender Examination of the lower extremity shows no evidence of edema PROSTHETIC DENTIST exam grossly intact Results - Lab Results Most recent lab results Calcium 9.1 mg/dL (8.7-10.3) 08/14/22 05:36 08/14/22 05:36 08/14/22 05:36 Assessment and Plan Assessment: 1. Chronic kidney disease NKF stage V with functioning AV fistula left arm. Currently asymptomatic. No plans for starting renal replacement therapy during this admission. Last creatinine of 4.3 in July 2022 2. Anemia with no active bleeding maintained on Aranesp, status post packed RBCs transfusion 3. Hypertension 4. CK D mineral bone disorder Plan: Patient can be discharged from nephrology standpoint. He will follow-up as outpatient. Continue with Aranesp as outpatient. Repeat labs in about 1 week post discharge.
[2022-08-14] MEDS: CALCIUM ACETATE 667 MG TAB PO SCH (12:06)
[2022-08-14] MEDS ORDERED: SODIUM FERRIC GLUCONAT-SUCROSE 125 MG in SODIUM CHLORIDE 0.9% 100 ML IVPB ONE (13:30)
[2022-08-14 14:36] VITALS: BP 145/69; PULSE 89; TEMP 97.8
--- NOTE | 2022-08-14 15:01 | P.CONS ---
History of Present Illness - Reason for Consult Consult date: 08/14/22 Anemia Requesting physician: Chula Cazares - Chief Complaint Abnormal lab - History of Present Illness Mr. Brito is a pleasant 62-year-old male we have been asked to see for anemia. Anemia noted in the chart since 2019. PMH includes HTN, CKD and Aanm-Ksvaw-Qcdgu disease-his mother, 2 sisters and a niece all have the diseases well-his disease manifests as frequent epistaxis. He was started on LNANY for anemia chronic kidney disease, every other week schedule, and is status post 3 or 4 doses. He does report that dialysis is planned but, has not initiated yet as he is still doing okay. He reports upper and lower endoscopy about 3 months ago and capsule endoscopy about a year and a half ago-no abnormal findings. He denies any other bleeding. He reports receiving IV iron in the past, last dose was sometime last year. Denies any symptoms of anemia, other then mild shortness of breath when ambulating, no dizziness, headaches, chest pain. He is independent in his activities. Denies any other physical complaints other 10 point review of systems. Hemoglobin status post transfusion is 7.6-he was 6.9 on admit, BUN 56, creatinine 5.1. Occult negative Review of Systems 10 point review of systems is negative except as stated in HPI Past Medical History Past Medical History: Blood Disorder, Cancer, GERD/Reflux, Hypertension, Renal Disease Additional Past Medical History / Comment(s): Skin CA - SURGERY AND RADIATION. [id number] (Blood disorder). Kidney disease-about to start dialysis History of Any Multi-Drug Resistant Organisms: None Reported Past Surgical History: No Surgical Hx Reported Additional Past Surgical History / Comment(s): removal of skin cancer removed from left [employer]ec[employer]alism. fistula placed for dialysis left upper arm Past Anesthesia/Blood Transfusion Reactions: No Reported Reaction Additional Past Anesthesia/Blood Transfusion Reaction / Comm: recent transfusions with no problems Past Psychological History: No Psychological Hx Reported Smoking Status: Former smoker Past Alcohol Use History: Daily Additional Past Alcohol Use History / Comment(s): quit smoking 2 yrs ago, smoked for 45 yrs. past hx of daily alcohol use-no longer drinks alcohol Past Drug Use History: None Reported - Past Family History Father Family Medical History: Cancer Mother Family Medical History: Blood Disorder (Yznzy-Pjuoe-Xcdjt disease) Sister(s) Family Medical History: Blood Disorder (2 sisters with Mkgwx-Trmid-Cstsb disease) Medications and Allergies Home Medications Medication Instructions Recorded Confirmed Type calcitrioL [Rocaltrol] 0.5 mcg PO SUTH 08/05/20 08/13/22 History amLODIPine [Norvasc] 10 mg PO DAILY 02/14/21 08/13/22 History Famotidine 40 mg PO DAILY 02/16/22 08/13/22 History Febuxostat 40 mg PO DAILY 02/16/22 08/13/22 History Ferrous Sulfate [Iron (65 MG 325 mg PO BID 02/16/22 08/13/22 History Elemental)] Sodium Bicarbonate Tab 650 mg PO DAILY 06/17/22 08/13/22 History hydrALAZINE HCL 50 mg PO TID 06/17/22 08/13/22 History Calcium Acetate [PhosLo] 1,334 mg PO BID@1200,1700 08/13/22 08/13/22 History Ergocalciferol (Vitamin D2) 1,250 mcg PO SALES 08/13/22 08/13/22 History [Drisdol (50,000 Iu)] Allergies Allergy/AdvReac Type Severity Reaction Status Date / Time No Known Allergies Allergy Verified 08/13/22 13:02 Physical Exam Vitals: Vital Signs Temp Pulse Pulse Resp BP BP Pulse Ox 08/14/22 07:17 98.3 F 86 16 179/74 97 08/14/22 02:33 98.0 F 93 16 141/64 96 08/13/22 19:04 98.3 F 94 17 138/71 98 08/13/22 18:15 98.1 F 82 21 150/68 99 08/13/22 16:59 98.0 F 79 18 148/89 08/13/22 14:50 98.0 F 80 18 140/88 97 08/13/22 14:30 98.0 F 83 18 149/81 100 08/13/22 14:20 97.9 F 83 18 148/90 98 Intake and Output 08/13/22 08/14/22 08/14/22 22:59 06:59 14:59 Intake Total 310 Balance 310 Intake: Blood Product 310 Rc As-1 Unit 310 [id number] Other: # Voids 4 Weight 95.254 kg - Constitutional General appearance: average body habitus, cooperative, no acute distress - EENT Eyes: anicteric sclerae, EOMI ENT: hearing grossly normal, normal oropharynx - Neck Neck: no lymphadenopathy - Respiratory Respiratory: bilateral: CTA - Cardiovascular Rhythm: regular Heart sounds: normal: S1, S2 Abnormal Heart Sounds: no systolic murmur, no diastolic murmur, no rub, no S3 Gallop, no S4 Gallop, no click, no other leg Peripheral Edema: bilateral: None - Gastrointestinal General gastrointestinal: no absent bowel sounds, no decreased bowel sounds, no distended, no hepatomegaly, no hyperactive bowel sounds, normal bowel sounds, no organomegaly, no rigid, no scaphoid, soft, no splenomegaly, no tenderness, no umbilical hernia, no ventral hernia - Integumentary Integumentary: normal turgor, pale - Neurologic Neurologic: CNII-XII intact - Musculoskeletal Musculoskeletal: strength equal bilaterally - Psychiatric Psychiatric: A&O x's 3, appropriate affect, intact judgment & insight Results CBC & Chem 7: 08/14/22 05:36 08/14/22 05:36 Labs: Abnormal Lab Results - Last 24 Hours (Table) 08/13/22 08/13/22 08/13/22 Range/Units 11:20 11:27 11:27 RBC 2.16 L (4.30-5.90) m/uL Hgb 6.9 L* (13.0-17.5) gm/dL Hct 20.9 L (39.0-53.0) % MCV (80.0-97.0) fL MCHC (32.0-37.0) g/dL RDW (11.5-14.5) % Lymphocytes # 0.7 L (1.0-4.8) k/uL Chloride 110 H (98-107) mmol/L Carbon Dioxide 21 L (22-30) mmol/L BUN 63 H (9-20) mg/dL Creatinine 5.02 H (0.66-1.25) mg/dL Est GFR (CKD-EPI)AfAm (60.0-200.0) Est GFR (CKD-EPI)NonAf (60.0-200.0) BUN/Creatinine Ratio (12.00-20.00) Ratio Glucose 114 H (74-99) mg/dL Iron 36 L (65-175) ug/dL % Saturation 10.50 L (15.00-50.00) Troponin I (0.000-0.034) ng/mL Crossmatch See Detail 08/13/22 08/13/22 08/13/22 Range/Units 11:27 17:00 17:00 RBC 2.49 L (4.30-5.90) m/uL Hgb 8.1 L (13.0-17.5) gm/dL Hct 24.4 L (39.0-53.0) % MCV (80.0-97.0) fL MCHC (32.0-37.0) g/dL RDW (11.5-14.5) % Lymphocytes # 0.7 L (1.0-4.8) k/uL Chloride (98-107) mmol/L Carbon Dioxide (22-30) mmol/L BUN (9-20) mg/dL Creatinine (0.66-1.25) mg/dL Est GFR (CKD-EPI)AfAm (60.0-200.0) Est GFR (CKD-EPI)NonAf (60.0-200.0) BUN/Creatinine Ratio (12.00-20.00) Ratio Glucose (74-99) mg/dL Iron (65-175) ug/dL % Saturation (15.00-50.00) Troponin I 0.040 H* 0.044 H* (0.000-0.034) ng/mL Crossmatch 08/13/22 08/14/22 08/14/22 Range/Units 20:09 05:36 05:36 RBC 2.43 L (4.30-5.90) m/uL Hgb 7.6 L (13.0-17.5) gm/dL Hct 25.2 L (39.0-53.0) % MCV 103.7 H (80.0-97.0) fL MCHC 30.2 L (32.0-37.0) g/dL RDW 15.7 H (11.5-14.5) % Lymphocytes # 0.76 L (1.0-4.8) k/uL Chloride (98-107) mmol/L Carbon Dioxide (22-30) mmol/L BUN 56.9 H (9-20) mg/dL Creatinine 5.1 H (0.66-1.25) mg/dL Est GFR (CKD-EPI)AfAm 12.9 L (60.0-200.0) Est GFR (CKD-EPI)NonAf 11.1 L (60.0-200.0) BUN/Creatinine Ratio 11.16 L (12.00-20.00) Ratio Glucose (74-99) mg/dL Iron (65-175) ug/dL % Saturation (15.00-50.00) Troponin I 0.039 H* (0.000-0.034) ng/mL Crossmatch Assessment and Plan (1) Anemia in chronic kidney disease Current Visit: Yes Status: Chronic Priority: Medium Code(s): N18.9 - CHRONIC KIDNEY DISEASE, UNSPECIFIED; D63.1 - ANEMIA IN CHRONIC KIDNEY DISEASE SNOMED Code(s): 989860075 Plan: Anemia of chronic kidney disease -Patient asymptomatic other than some mild shortness of breath on exertion. -Recently started on Procrit by [employer]. Patient will continue follow-up and treatment per Nephrology. Iron saturation 10.5%. IV iron has been ordered. LANNY administration requires a saturation of 20% or greater to receive. -Transfused for hemoglobin less than 7 unless patient is symptomatic -Patient reports having upper and lower endoscopy in the last few months, no unusual findings per patient. Encouraged to continue follow-up. Do not think there is a need for GI/surgery to see patient at this time. -Contact information for Hematology in discharge plan. Told he can contact us for iron infusions or lab draws if needed. -Please, refer back to Hematology for further workup if, after replenishing her iron stores and continuing on Procrit, anemia persists, progresses or other lab abnormalities arise.
--- NOTE | 2022-08-15 16:26 | P.DS ---
Providers Date of admission: 08/13/22 16:20 Expected date of discharge: 08/14/22 Attending physician: Himanshu Pires MD Consults: 08/13/22 14:19 Consult Physician Stat Consulting Provider: Nicki Gavin Consult Reason/Comments: ESRD Do you want consulting provider notified?: Yes 08/13/22 14:20 Consult Physician Stat Consulting Provider: Hadley Dupree Consult Reason/Comments: anemia Do you want consulting provider notified?: Yes Primary care physician: Higinio Killian Hospital Course: Final diagnosis Symptomatic anemia for transfusion Chronic kidney disease History of gastroesophageal reflux disease hypertension History of skin cancer Full code Discharge disposition Patient is being discharged in a stable condition with guarded prognosis to home. Patient will follow-up with Dr. sylvester in the outpatient setting upon discharge. Patient is to follow up with hematology and nephrology outpatient as scheduled. Total time taken is greater than 35 minutes. Hospital course This is a 62-year-old male who was recently admitted with anemia and needed a transfusion. Patient with most likely chronic anemia due to kidney disease. Patient follows with nephrology closely outpatient and discussing hemodialysis. Patient has not started yet but does have a fistula on the left. Patient is making urine and feeling well. Patient was given a unit and hemoglobin is 7.6. Will give IV iron and other studies ongoing with hematology following. Patient will follow-up with hematology as needed outpatient. Patient to continue current medications and recommend repeat labs in the next few days. Patient has appointment with nephrology next week. Currently no reports of chest pain, shortness of breath, or palpitations. Patient is afebrile. No reports of nausea or vomiting and patient is tolerating diet. Patient will be discharged today. Guarded prognosis Physical exam: Gen: This is a 62-year-old male who was awake, alert and oriented 3, well- developed, well-nourished HEENT: Head is atraumatic, normocephalic. Pupils equal, round. Sclerae is anicteric. NECK: Supple. No JVD. No lymphadenopathy. No thyromegaly. LUNGS: Clear to auscultation. No wheezes or rhonchi. No intercostal retractions. HEART: Regular rate and rhythm. No murmur. ABDOMEN: Soft. Bowel sounds are present. No masses. No tenderness. EXTREMITIES: No pedal edema. No calf tenderness. NEUROLOGICAL: Patient is awake, alert and oriented x3. Cranial nerves 2 through 12 are grossly intact. Please refer to medication reconciliation sheet for a list of medications. The impression and plan of care has been dictated by Yessenia Garay, Nurse Practitioner as directed. Dr. Alicia MD I have performed a history and examination and MDM of this patient, discussed the same with the dictator, and agree with the dictator's assessment and plan as written ,documented as a scribe. Based on total visit time, I have performed more than 50% of the visit. Patient Condition at Discharge: Stable Plan - Discharge Summary Discharge Rx Participant: No New Discharge Prescriptions: Continue calcitrioL [Rocaltrol] 0.5 mcg PO SUTH amLODIPine [Norvasc] 10 mg PO DAILY Ferrous Sulfate [Iron (65 MG Elemental)] 325 mg PO BID Febuxostat 40 mg PO DAILY hydrALAZINE HCL 50 mg PO TID Sodium Bicarbonate Tab 650 mg PO DAILY Ergocalciferol (Vitamin D2) [Drisdol (50,000 Iu)] 1,250 mcg PO SALES Famotidine 40 mg PO DAILY Calcium Acetate [PhosLo] 1,334 mg PO BID@1200,1700 Discharge Medication List calcitrioL [Rocaltrol] 0.5 mcg PO SUTH 08/05/20 [History] amLODIPine [Norvasc] 10 mg PO DAILY 02/14/21 [History] Famotidine 40 mg PO DAILY 02/16/22 [History] Febuxostat 40 mg PO DAILY 02/16/22 [History] Ferrous Sulfate [Iron (65 MG Elemental)] 325 mg PO BID 02/16/22 [History] Sodium Bicarbonate Tab 650 mg PO DAILY 06/17/22 [History] hydrALAZINE HCL 50 mg PO TID 06/17/22 [History] Calcium Acetate [PhosLo] 1,334 mg PO BID@1200,1700 08/13/22 [History] Ergocalciferol (Vitamin D2) [Drisdol (50,000 Iu)] 1,250 mcg PO SALES 08/13/22 [History] Follow up Appointment(s)/Referral(s): Constantin Sylvester MD [Primary Care Provider] - 1-2 days Jia Hurtado NPC [Nurse Practitioner] - As Needed (Hematology if needed) Phill Easton DO [STAFF PHYSICIAN] - 1 Week () Ambulatory/Diagnostic Orders: Complete Blood Count w/diff [LAB.AMB] Time Frame: 1 Week, Location: None Selected Activity/Diet/Wound Care/Special Instructions: Activity Limited until follow-up Follow-up with primary care provider on discharge Continue taking medications as prescribed Follow-up with nephrology in one week Recommend repeat labs in the next few days Continue renal diet Discharge Disposition: HOME SELF-CARE
[2022-08-16] MEDS ORDERED: ERGOCALCIFEROL 1,250 MCG (50,000 IU) CAPSULE PO SCH (09:00)
== END 2022-08-14 15:55 | disposition home or self-care (01) ==
LOC: EC 09:21 → 4SSUR 16:20
PROVIDERS: ADMIT Internal Medicine; ATTEND Internal Medicine
DX: I12.0 Hypertensive chronic kidney disease with stage 5 chronic kidney disease or end stage renal disease (principal); N18.6 End stage renal disease; D63.1 Anemia in chronic kidney disease; R79.89 Other specified abnormal findings of blood chemistry; I78.0 Hereditary hemorrhagic telangiectasia; K21.9 Gastro-esophageal reflux disease without esophagitis; R04.0 Epistaxis; M89.8X9 Other specified disorders of bone, unspecified site; Z79.899 Other long term (current) drug therapy; Z95.828 Presence of other vascular implants and grafts; Z87.891 Personal history of nicotine dependence; Z85.828 Personal history of other malignant neoplasm of skin; Z92.3 Personal history of irradiation; Z98.890 Other specified postprocedural states; Z80.9 Family history of malignant neoplasm, unspecified; Z82.49 Family history of ischemic heart disease and other diseases of the circulatory system
CPT/HCPCS: 36430; 99284; 36415; 93005; 86900; 86901; 80053; 80048; 83540; 83550; 84484; 85025 ×2; 85610; 85730; 86850; 86920; 82272; G0378 ×2; P9016; J2916

== ENCOUNTER → 2022-11-02 | Outpatient (CLI) | payer BC ==
--- NOTE | 2022-11-02 14:03 | US ---
EXAMINATION TYPE: US kidneys/renal and bladder DATE OF EXAM: 11/02/2022 COMPARISON: US 02/27 CLINICAL HISTORY: CKD N18.4. follow up on known bilateral cysts EXAM MEASUREMENTS: Right Kidney: 9.7 x 4.1 x 4.1 cm Left Kidney: 10.1 x 4.7 x 4.4 cm Right Kidney: cyst at upper pole measuring 18 x 16 x 15mm, 2 more complex hypoechoic areas, at lower pole 19 x 11 x 15mm and more medial 23 x 15 x 11mm Left Kidney: complex hypoechoic area at medially pole 34 x 20 x 20mm and 8mm cyst at the upper pole. Bladder: wnl Bilateral Jets seen: wnl There is no evidence for hydronephrosis at this point in time. No nephrolithiasis is seen. No solid masses are identified. The urinary bladder is anechoic. Bilateral ureteral jets are seen. IMPRESSION: Essentially stable Bosniak type I and 2 lesions seen bilaterally. Poor cortical medullary differentia tion compatible with medical renal disease.
== END | disposition home or self-care (01) ==
LOC: RADUSWWP 12:44
PROVIDERS: ATTEND Internal Medicine
DX: N18.4 Chronic kidney disease, stage 4 (severe) (principal); N28.89 Other specified disorders of kidney and ureter
CPT/HCPCS: 76770

== ENCOUNTER → 2023-03-04 | Outpatient (CLI) | payer BC ==
[2023-03-05 03:15] LABS: Blood Urea Nitrogen 67.3 mg/dL (9.0-27.0); Chloride 107 mmol/L (96-109); Glucose 115 mg/dL (70-110); Potassium 5.1 mmol/L (3.5-5.5); Sodium 140 mmol/L (135-145)
[2023-03-05 03:16] LABS: ALT 24 U/L (10-49); AST 21 U/L (14-35); Albumin/Globulin Ratio 1.43 Ratio (1.60-3.17); Alkaline Phosphatase 135 U/L (41-126); Calcium 9.5 mg/dL (8.7-10.3); Carbon Dioxide 17.7 mmol/L (21.6-31.8); Globulin 2.8 d/dL (1.6-3.3); Magnesium 2.6 mg/dL (1.5-2.4); Total Bilirubin <0.2 mg/dL (0.3-1.2); Total Protein 6.8 d/dL (6.2-8.2)
== END | disposition home or self-care (01) ==
LOC: LABWHC1 16:24
PROVIDERS: ATTEND Internal Medicine
DX: N18.4 Chronic kidney disease, stage 4 (severe) (principal)
CPT/HCPCS: 36415; 80053; 83735

== ENCOUNTER → 2023-03-15 | Outpatient (CLI) | payer BC ==
--- NOTE | 2023-03-15 12:43 | XR ---
EXAMINATION TYPE: XR chest 2V DATE OF EXAM: 03/15/2023 10:39 AM COMPARISON: Chest radiographs from 02/27/2023 TECHNIQUE: XR chest 2V Frontal and lateral views of the chest. CLINICAL INDICATION:Male, 62 years old with history of N18.4 kidney disease; FINDINGS: Lungs/Pleura: No evidence of focal consolidation or pneumothorax. Blunting of the right costophrenic angle is present. Pulmonary vascularity: Unremarkable. Heart/mediastinum: Cardiomediastinal silhouette is unremarkable. Musculoskeletal: No acute osseous pathology. IMPRESSION: Improved aeration of the right lung base compared to 02/27/2023. Blunting of the right costophrenic an gle suggestive of small pleural effusion.
[2023-03-15 16:04] LABS: % Iron Saturation 24.03 (15.00-50.00); ALT 24 U/L (10-49); AST 26 U/L (14-35); Albumin 4.1 d/dL (3.8-4.9); Albumin/Globulin Ratio 1.64 Ratio (1.60-3.17); Alkaline Phosphatase 133 U/L (41-126); Blood Urea Nitrogen 79.5 mg/dL (9.0-27.0); Calcium 9.6 mg/dL (8.7-10.3); Carbon Dioxide 15.9 mmol/L (21.6-31.8); Chloride 110 mmol/L (96-109); Globulin 2.5 d/dL (1.6-3.3); Glucose 149 mg/dL (70-110); Iron 62 UG/DL (65-175); Potassium 5.5 mmol/L (3.5-5.5); Sodium 140 mmol/L (135-145); Total Bilirubin <0.2 mg/dL (0.3-1.2); Total Iron Binding Capacity 258 UG/DL (228-460); Total Protein 6.6 d/dL (6.2-8.2)
[2023-03-15 17:25] LABS: Hepatitis A Antibody IgM Nonreactive; Hepatitis B Core IgM Nonreactive; Hepatitis B Surface Antigen Nonreactive; Hepatitis C IgG Antibody Nonreactive
== END | disposition home or self-care (01) ==
LOC: LABWHC1 09:46
PROVIDERS: ATTEND Internal Medicine
DX: N18.4 Chronic kidney disease, stage 4 (severe) (principal); R91.8 Other nonspecific abnormal finding of lung field
CPT/HCPCS: 36415; 71046; 80053; 80074; 82728; 83540; 83550

== ENCOUNTER → 2023-04-26 | Outpatient (CLI) | payer BC ==
[2023-04-26 22:54] LABS: BUN/Creat Ratio 13.65 Ratio (12.00-20.00); Blood Urea Nitrogen 77.8 mg/dL (9.0-27.0); Calcium 9.3 mg/dL (8.7-10.3); Carbon Dioxide 18.6 mmol/L (21.6-31.8); Chloride 107 mmol/L (96-109); Glucose 97 mg/dL (70-110); Magnesium 2.5 mg/dL (1.5-2.4); Potassium 4.8 mmol/L (3.5-5.5); Sodium 140 mmol/L (135-145)
== END | disposition home or self-care (01) ==
LOC: LABWHC1 16:20
PROVIDERS: ATTEND Internal Medicine
DX: N18.4 Chronic kidney disease, stage 4 (severe) (principal)
CPT/HCPCS: 36415; 80048; 83735